=== PATIENT | male | born 1970 | race Caucasian/White ===

== ENCOUNTER 2021-08-04 09:26 | Outpatient (REF) | payer OTHER, SELFPAY ==
[2021-08-04 10:46] LABS: Hematocrit 43.5 % (42.0-52.0); Hemoglobin 14.7 g/dl (14.0-18.0); Mean Corpuscular HGB Conc 33.8 g/dl (31.0-36.0); Mean Corpuscular Hemoglobin 29.3 pg (27.0-33.0); Mean Corpuscular Volume 86.7 fL (80.0-98.0); Mean Platelet Volume 10.3 fL (9.4-12.4); Platelet Count 370 X10*3/uL (160-400); Red Blood Count 5.02 X10*6/uL (4.60-5.80); Red Cell Distribution Width 12.4 % (11.0-16.0); White Blood Count 8.4 X10*3/uL (4.8-10.8)
[2021-08-04 10:52] LABS: Estimated Average Glucose 103 mg/dL; Hemoglobin A1c % 5.2 %
[2021-08-04 11:16] LABS: Alanine Aminotransferase 30 U/L (0-40); Albumin Level 4.4 g/dL (3.5-5.0); Alkaline Phosphatase 70 U/L (39-117); Anion Gap 14 (12-20); Aspartate Amino Transferase 27 U/L (5-37); Bilirubin Total 1.2 mg/dL (0.0-1.0); Blood Urea Nitrogen 15 mg/dL (9-16); Calcium 9.7 mg/dL (8.4-10.2); Carbon Dioxide 26 mmol/L (22-29); Chloride 105 mmol/L (96-108); Cholesterol 231 mg/dL; Estimated Glomerular Filt Rate > 60; Glucose Fasting 92 mg/dL (60-99); HDL Cholesterol 57 mg/dL; LDL Cholesterol Calculated 158 mg/dl; Potassium 4.7 mmol/L (3.3-5.1); Sodium 140 mmol/L (135-145); Total Protein 7.2 g/dL (6.5-8.0); Triglycerides 82 mg/dL
[2021-08-04 11:39] LABS: Prostate Specific Antigen Scr 4.12 ng/mL (<0.05-4.0); TSH reflex Free T4 0.69 uIU/mL (0.32-4.0)
== END 2021-08-04 09:27 | disposition home or self-care (01) ==
LOC: HO.LAB 09:26
PROVIDERS: PCP Physician Assistant; Visit Provider Physician Assistant
DX: Z13.1 Encounter for screening for diabetes mellitus (principal); Z13.220 Encounter for screening for lipoid disorders; Z13.29 Encounter for screening for other suspected endocrine disorder; K52.9 Noninfective gastroenteritis and colitis, unspecified; Z12.5 Encounter for screening for malignant neoplasm of prostate
CPT/HCPCS: 36415; 80053; 80061; 83036; 84153; 84443; 85027

== ENCOUNTER 2022-01-01 10:21 | Day surgery (SDC) | payer OTHER, SELFPAY ==
--- NOTE | 2021-12-31 09:24 | HO.ANESPROP2 ---
Documented by User: Stefany Simon NP 12/31/21 09:27 HPI - Anesthesia Eval Consult details Narrative: 51yo M for Colonoscopy afib x 2 in his 20's, no anticoag PMFSH Active Problems Active Problems: All Active Problems (Updated 12/31/21 @ 07:45 by Alice Mathis RN) Epigastric pain (Acute) Screening for diabetes mellitus (DM) (Acute) Screening for hypercholesterolemia (Acute) Screening for hypothyroidism (Acute) Laceration of right lower leg (Acute) Leg wound, right (Acute) Encounter for removal of sutures (Acute) Elevated PSA (Acute) Borderline high cholesterol (Acute) Annual physical exam (Acute) IBD (inflammatory bowel disease) (Acute) Anxiety and depression (Acute) Past Medical History Medical History (Updated 12/31/21 @ 07:45 by Alice Mathis RN) Anxiety and depression Atrial fibrillation IBD (inflammatory bowel disease) Family History Family History Mother No problems noted. Father No problems noted. Surgical History Surgical History No significant past surgical history Social History Social History Housing: House Alcohol intake: never Patient Tobacco Use Status: Former Tobacco user Quit Date: 1998 e-Cigarette/Vaping Use: Never Used Second Hand Smoke Exposure: No Use of substances other than those prescribed or required for medical reasons: No Are you DNR?: No Advance Directives: No Advance Directives Information Provided: Yes service: Yes Current occupational status: employed Current occupation: [employer] Chief Cognitive needs: No Hearing needs: No Vision needs: Yes (glasses) Meds Allergies Allergy/AdvReac Type Severity Reaction Status Date / Time No Known Allergies Allergy Verified 12/25/21 13:37 Home Medications Medication Instructions Recorded Confirmed Last Taken Type mesalamine 4 gram/60 mL enema 4 g HI BEDTIME PRN as directed 08/19/20 12/25/21 Unknown History bupropion HCl 300 mg 24 hr tablet, 300 mg PO QAM 09/07/21 12/25/21 01/01/22 History extended release (Wellbutrin XL) ibuprofen 600 mg tablet 600 mg PO Q8H PRN Pain 09/07/21 12/25/21 Unknown History Exam Exam Date and Time: December 31, [id number] Pertinent Lab Results Pertinent Lab Results: Laboratory Tests 08/04/21 08/04/21 09:41 09:41 WBC 8.4 Hgb 14.7 Hct 43.5 Plt Count 370 Sodium 140 Potassium 4.7 Chloride 105 Carbon Dioxide 26 BUN 15 Creatinine 0.99 Assessment and Plan Assessment Anesthesia Assessment: Chart Reviewed Documented by User: Guerda Ambriz MD 01/01/22 11:17 [facility] Past Medical History Medical History (Updated 12/31/21 @ 07:45 by Alice Mathis RN) Anxiety and depression Atrial fibrillation IBD (inflammatory bowel disease) Family History Family History Mother No problems noted. Father No problems noted. Family history of problems with anesthesia: No Surgical History Surgical History No significant past surgical history History of Problems with Anesthesia: No Social History Social History Housing: House Alcohol intake: never Patient Tobacco Use Status: Former Tobacco user Quit Date: 1998 e-Cigarette/Vaping Use: Never Used Second Hand Smoke Exposure: No Use of substances other than those prescribed or required for medical reasons: No Are you DNR?: No Advance Directives: No Advance Directives Information Provided: Yes service: Yes Current occupational status: employed Current occupation: [employer] Chief Cognitive needs: No Hearing needs: No Vision needs: Yes (glasses) Meds Allergies Allergy/AdvReac Type Severity Reaction Status Date / Time No Known Allergies Allergy Verified 12/25/21 13:37 Home Medications Medication Instructions Recorded Confirmed Last Taken Type mesalamine 4 gram/60 mL enema 4 g HI BEDTIME PRN as directed 08/19/20 12/25/21 Unknown History bupropion HCl 300 mg 24 hr tablet, 300 mg PO QAM 09/07/21 12/25/21 01/01/22 History extended release (Wellbutrin XL) ibuprofen 600 mg tablet 600 mg PO Q8H PRN Pain 09/07/21 12/25/21 Unknown History Exam Height,Weight and Vital Signs: Height 5 ft 5 in Weight 74.843 kg Vital Signs Temp Pulse Resp BP Pulse Ox O2 Del Method 01/01/22 10:35 97.6 F 66 16 122/74 99 Room Air Airway Mallampati Class: II TM Dist: >3cm Neck ROM: Full Loose/Missing/Broken Teeth: No Heart: RRR Lungs: CTAB Assessment and Plan Assessment Anesthesia Assessment: Anesthesia Plan Discussed Final Anesthetic Review Family History of Problems with Anesthesia: No History of Problems with Anesthesia: No NPO: Yes ASA Class: II Final Preanesthetic Review: No Changes in Pt Med Stat, Meds/Allgs Chart Reviewed, Consent Obtained/Reviewed and Anes Risks/Benef Reviewed Patient Risk: Low Procedure Risk: Low Assessment/Block/Sedation in SS: Assess/Block/Sedation-SS Anesthetic Plan Anesthetic Plan: MAC: Disposition: Standard PACU
[2022-01-01 10:35] VITALS: BP 122/74; PULSE 66; RESP 16; TEMP 36.4; O2SAT 99; BMI 27.4
[2022-01-01] MEDS: Lactated Ringers 1,000 ML 100 ML IVCONT (10:43)
--- NOTE | 2022-01-01 11:39 | MHC.SHP ---
Pre-Procedural Eval Section A Date of Service: 01/01/22 Section B Chief Complaint: colitis Details of Present Illness: see H&P no changes Relevant Family History (Specify if Yes): No Relevant Social History: None Present Medications: None Medical History: No relevant PMH History of Previous Operations: No relevant previous surgery Allergies: Allergies Allergy/AdvReac Type Severity Reaction Status Date / Time No Known Allergies Allergy Verified 12/25/21 13:37 Plan I have reviewed the history and physical and performed a pertinent physical examination on my patient. No changes have occurred unless specified.
[2022-01-01 12:16] VITALS: BP 100/65; PULSE 62; RESP 18; TEMP 36.3; O2SAT 98
--- NOTE | 2022-01-01 12:16 | PM.OP ---
Brief Operative Note Date of Service: 01/01/22 Pre-op diagnosis: ulcerative colitis Post-op diagnosis: same Procedure: colonoscopy Surgeon: Indio Taylor Anesthesia: MAC Was an Spiritual Counselor used for this Procedure?: No Estimated blood loss (mL): 5 Pathology: other Condition: stable Disposition: PACU
[2022-01-01 12:31] VITALS: BP 115/80; PULSE 55; RESP 17; TEMP 36.3; O2SAT 100
--- NOTE | 2022-01-02 00:40 | OP_ITS ---
SURGEON: Indio Taylor MD INDICATIONS: Colon cancer screening, ulcerative colitis surveillance. PREOPERATIVE DIAGNOSIS: POSTOPERATIVE DIAGNOSIS: PROCEDURE PERFORMED: Colonoscopy to the terminal ileum with biopsy on 01/01/22. ESTIMATED BLOOD LOSS: COMPLICATIONS: ANESTHESIA: ASSISTANTS: SPECIMENS: MEDICATIONS: Monitored anesthesia care. DESCRIPTION OF PROCEDURE: A History and Physical performed. The risks and benefits of the procedure were explained to the patient. Informed consent was obtained. The patient was placed in the left lateral decubitus position. A digital rectal exam was performed and was found to be normal. The Olympus pediatric video colonoscope was introduced into the rectum and advanced to the cecum without difficulty. The cecum was identified by transillumination, palpation, and identification of ileocecal valve. Examination was performed. The scope was removed. He tolerated the procedure well and was taken to recovery in stable condition. FINDINGS: The terminal ileum was not examined. The visualized colonic mucosa was normal except in the rectum where the last 10-15 cm of colon showed changes consistent with mild colitis. There was loss of vascular pattern and superficial ulceration. No mass lesions were seen. Retroflexed examination was otherwise normal. Biopsies were obtained beginning in the cecum and extending to the rectum approximately every 10 cm in all 4 quadrants. No raised lesions or ulcerated areas were seen in the colon except in the rectosigmoid as above. IMPRESSION: Ulcerative colitis. RECOMMENDATION: Follow up the biopsy results. MD JAILYN Horn/JOSELO / [id number] MTDD
== END 2022-01-01 12:45 | disposition home or self-care (01) ==
PROVIDERS: PCP Physician Assistant; Visit Provider Internal Medicine Gastroenterology
PROC: 0DJD8ZZ Inspection of Lower Intestinal Tract, Via Natural or Artificial Opening Endoscopic (ICD-10-PCS; CPT 45378; principal; 2022-01-01 11:30)
DX: Z12.11 Encounter for screening for malignant neoplasm of colon (principal); K51.90 Ulcerative colitis, unspecified, without complications; E78.00 Pure hypercholesterolemia, unspecified; F41.8 Other specified anxiety disorders; Z79.899 Other long term (current) drug therapy; Z87.891 Personal history of nicotine dependence
CPT/HCPCS: 45380; 88305; J2405

== ENCOUNTER 2022-02-24 11:45 | Outpatient (REF) | payer OTHER, SELFPAY ==
--- NOTE | ~2022-02-24 | XR_ITS ---
EXAMINATION: XR CHEST CLINICAL INFORMATION: Shortness of breath COMPARISON: None TECHNIQUE: 2 views of the chest were obtained. FINDINGS: No significant abnormality is noted involving the heart, lungs, mediastinum, bony thorax or soft tissues. XR/XR chest 2V IMPRESSION: Unremarkable chest examination.
[2022-02-24 13:11] LABS: Hematocrit 44.5 % (42.0-52.0); Hemoglobin 15.1 g/dl (14.0-18.0); Mean Corpuscular HGB Conc 33.9 g/dl (31.0-36.0); Mean Corpuscular Hemoglobin 29.7 pg (27.0-33.0); Mean Corpuscular Volume 87.6 fL (80.0-98.0); Mean Platelet Volume 10.7 fL (9.4-12.4); Platelet Count 298 X10*3/uL (160-400); Red Blood Count 5.08 X10*6/uL (4.60-5.80); Red Cell Distribution Width 12.5 % (11.0-16.0); White Blood Count 9.3 X10*3/uL (4.8-10.8)
[2022-02-24 13:42] LABS: Alanine Aminotransferase 30 U/L (0-40); Albumin Level 4.9 g/dL (3.5-5.0); Alkaline Phosphatase 73 U/L (39-117); Anion Gap 19 (12-20); Aspartate Amino Transferase 24 U/L (5-37); Bilirubin Total 0.8 mg/dL (0.0-1.0); Blood Urea Nitrogen 16 mg/dL (9-16); Calcium 10.1 mg/dL (8.4-10.2); Carbon Dioxide 27 mmol/L (22-29); Chloride 103 mmol/L (96-108); Cholesterol 243 mg/dL; Estimated Glomerular Filt Rate > 60; Glucose Fasting 90 mg/dL (60-99); HDL Cholesterol 64 mg/dL; LDL Cholesterol Calculated 160 mg/dl; Potassium 5.1 mmol/L (3.3-5.1); Sodium 144 mmol/L (135-145); Total Protein 7.6 g/dL (6.5-8.0); Triglycerides 95 mg/dL
[2022-02-24 13:52] LABS: Erythrocyte Sedimentation Rate 5 MM/HR (0-15)
[2022-02-24 14:04] LABS: Prostate Specific Antigen Scr 3.26 ng/mL (<0.05-4.0)
== END 2022-02-24 11:46 | disposition home or self-care (01) ==
LOC: HO.LAB 11:45
PROVIDERS: PCP Physician Assistant; Visit Provider Physician Assistant
DX: Z12.5 Encounter for screening for malignant neoplasm of prostate (principal); R06.02 Shortness of breath; K52.9 Noninfective gastroenteritis and colitis, unspecified; R97.20 Elevated prostate specific antigen [PSA]; E78.9 Disorder of lipoprotein metabolism, unspecified
CPT/HCPCS: 36415; 71046; 80053; 80061; 84153; 85027; 85652

== ENCOUNTER → 2022-03-12 11:27 | Outpatient (REF) | payer OTHER, SELFPAY ==
--- NOTE | 2022-03-12 11:30 | HM_ITS ---
Conclusion: 1. Patient was monitored for total period of 4 days and 3 hours 2. Baseline was normal sinus rhythm with average heart of 68 beats per minute 3. Very rare ectopy noted 4. No significant pauses or bradycardia noted 5. No patient reported symptoms MTDD
== END ==
LOC: HO.CARD 11:27
PROVIDERS: PCP Physician Assistant; Visit Provider Physician Assistant
DX: R00.2 Palpitations (principal)
CPT/HCPCS: 93242

== ENCOUNTER 2022-10-27 02:24 | Emergency (ER) | payer OTHER, SELFPAY ==
[2022-10-27 02:28] VITALS: BP 136/83; PULSE 63; RESP 19; TEMP 36.4; O2SAT 100; BMI 27.5
[2022-10-27 02:47] VITALS: BP 136/83; PULSE 63; RESP 19; TEMP 36.4; O2SAT 100
--- NOTE | 2022-10-27 02:52 | PC.NURSE ---
pt c/o L shoulder pain states he was teaching daughter how to play on monkey bars 10/26/22 1800, when he felt like he pulled or dislocated his shoulder, denies feeling or hearing popping sensation states being unable to sleep d/t the pain intensity increased pain when movement involved aox4 no apparent distress, resting quietly
--- NOTE | 2022-10-27 03:03 | ED.EXTPRO ---
HPI - Extremity Problem General Chief complaint: Extremity Injury, Upper Stated complaint: Shoulder pain Time Seen by Provider: 10/27/22 02:54 Source: patient Mode of arrival: ambulatory Limitations: no limitations History of Present Illness HPI Narrative: Patient comes emergency room complaining of left-sided shoulder pain. Patient states that he was playing with his daughter he using her how to swing him the monkey bars. Patient states that he immediately felt pain, denting much of it. However, throughout the night the pain became much worse. Patient denies falling, denies any other injuries. Related Data Previous Rx's Medication Instructions Recorded bupropion HCl 300 mg 24 hr tablet, 300 mg PO QAM 90 days #90 tabs 03/31/22 extended release (Wellbutrin XL) Allergies Allergy/AdvReac Type Severity Reaction Status Date / Time No Known Allergies Allergy Verified 07/19/22 13:54 Review of Systems Review of Systems: Constitutional : No Weight loss, No Fever, No Chills, No Night Sweats, No Fatigue, No Malaise ENT/Mouth : No Hearing loss, No Ear Pain, No Nasal Congestion, No Sinus Pain, No Hoarseness, No sore throat, No Rhinorrhea, No Swallowing Difficulty Eyes: No Eye Pain, No Swelling, No Redness, No Foreign Body, No Discharge, No Vision Changes Cardiovascular : No Chest Pain, No SOB, No Dyspnea on Exertion, No Orthopnea, No Edema, No Palpitations Respiratory : No Cough, No Sputum, No Wheezing, No Smoke Exposure, No Dyspnea Gastrointestinal : No Nausea, No Vomiting, No Diarrhea, No Constipation, No abdominal Pain, No Hematochezia, No Melena Genitourinary : no irregular bleeding, No Dysuria, No Urinary Frequency, No Hematuria, No Urinary Incontinence, No Urgency, No Flank Pain, No Urinary Flow Changes, No Hesitancy Musculoskeletal : Complaining of left shoulder pain No Myalgias, No Joint Swelling Skin : No Skin Lesions, No rash Neuro : No Weakness, No Numbness, No Paresthesias, No Loss of Consciousness, No Dizziness, No Headache Psych : No Anxiety/Panic, No Depression, No SI/HI/AH/VH, No Social Issues, Heme/Lymph: No Bruising, No Bleeding,No Lymphadenopathy Endocrine : No Polyuria, No Polydipsia, No Temperature Intolerance [facility] Past Medical History Medical History Anxiety and depression Atrial fibrillation IBD (inflammatory bowel disease) Surgical History No significant past surgical history Family History Family History Mother No problems noted. Father No problems noted. 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 Oriented X3. No acute distress. Eyes: Pupils equal, round and reactive to light. ENT: Pharynx normal. Neck: Normal inspection. Neck supple. No lymph nodes noted. No crepitus CVS: Normal heart rate and rhythm. Pulses normal. Normal S1 and S2 Respiratory: No respiratory distress. Breath sounds normal. No Wheezing. No rales Abdomen: Soft and nontender. No rigidity. No distention. Skin: Skin warm and dry. Normal skin color. Normal skin turgor. Extremities: No lower extremity edema. No Lacerations. No Rash, pain to palpation over the anterior side of the shoulder. No clavicular pain. Patient is able to abduct the arm all the way to 180 degrees. However, patient has to push significantly through pain to do so Neuro: Oriented X 3. No motor deficit. No sensory deficit. Moving all extremities. No slurred speech. CN 2 through 12 grossly intact Psych: calm, cooperative, normal affect Medical Decision Making Medical Decision Making MDM Narrative: My interpretation of x-ray of the shoulder: Normal alignment, no dislocation, no fracture -I offered p.o. medications including narcotics and IM medications to the patient, patient become -patient declined shoulder sling Differential Diagnosis Differential Diagnoses: The differential diagnosis associated with the presentation includes (Shoulder dislocation, humerus fracture, bursitis, clavicular fracture, labrum tear, rotator cuff tear versus rupture) Radiology Impression Discussion of test interpretation with radiology: I have reviewed the radiologist's reading. Radiologist Impression: FINDINGS: No acute fractures. Glenohumeral and acromioclavicular alignment is anatomic. Small marginal osteophytes along the acromioclavicular and glenohumeral joints. Soft tissues unremarkable. XR/XR shoulder LT min 2V IMPRESSION: *? No acute fractures or dislocations. *? Mild degenerative changes as described Discharge Plan Discharge Clinical Impression: Acute pain of left shoulder Patient Disposition: Home, Self-Care Instructions: Shoulder Pain (ED) Additional Instructions: Please follow-up with your primary care physician tomorrow. If you have any worsening or new symptoms, please return to the emergency room or call 911 Prescriptions: No Action bupropion HCl [Wellbutrin XL] 300 mg tablet extended release 24 hr 300 mg PO QAM 90 Days Qty: 90 2RF Referrals: Federico Ruiz PA-C [Physician Propeller Driven Airplane Mechanic] - Stand Alone Forms: Work/School Release
--- NOTE | 2022-10-27 04:00 | PC.NURSE ---
Discharge instructions given and explained to pt No apparent distress gait steady and independent aox4 all of pt's questions answered
== END 2022-10-27 04:04 | disposition home or self-care (01) ==
PROVIDERS: Emergency Provider Emergency Medicine; PCP Physician Assistant
DX: M25.512 Pain in left shoulder (principal)
CPT/HCPCS: 73030; 99283; 99284

== ENCOUNTER 2023-08-11 09:59 | Outpatient (AMB) | payer OTHER, SELFPAY ==
[2023-08-11 09:59] VITALS: BP 100/74; PULSE 70; O2SAT 98; BMI 27.5
--- NOTE | 2023-08-11 09:59 | A.OFFPC_ITS ---
Vital Signs 08/11/23 09:59 Height 5 ft 5 in Weight 165 lb 6 oz BMI 27.5 BP 100/74 Blood Pressure Location Lt brachial Position Sitting Pulse 70 Pulse Source Pulse Oximeter Pulse Oximetry (%) 98 Oxygen Delivery Method Room Air Intake Visit Reasons: left lower abdominal pain Intake Note: The patient presents with ongoing left lower abdominal pain, which has been improving over the past few months. Jewelry Facer Required: No Accompanied by: Self / Same As Patient Allergies No Known Allergies Allergy (Verified 08/11/23 10:10) Medication List - Last Reconciled 08/11/23 by Leodan Gil PA-C bupropion HCl XL (Wellbutrin XL) 300 mg PO QAM 90 days Tobacco use date assessed: 08/11/23 HPI left lower abdominal pain HPI Details Patient is a 53-year-old male here today for a problem visit? Patient has a past medical history significant for ulcerative colitis, depression, anxiety. He reports over the last 2 months having left lower quadrant inguinal pain. He reports injuring it while playing hockey. He reports gradually the pain is getting better. The pain only really bothers him when he is being physically active. [facility] Medical History Atrial fibrillation Anxiety and depression IBD (inflammatory bowel disease) Surgical History No significant past surgical history Family History Mother No problems noted. Father No problems noted. 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 1. Little interest or pleasure in doing things: not at all 2. Feeling down, depressed, or hopeless: not at all 3. Trouble falling or staying asleep, or sleeping too much: not at all 4. Feeling tired or having little energy: not at all 5. Poor appetite or overeating: not at all 6. Feeling bad about yourself - or that you are a failure or have let yourself or your family down: not at all 7. Trouble concentrating on things, such as reading the newspaper or watching television: not at all 8. Moving or speaking so slowly that other people could have noticed. Or the opposite - being so fidgety or restless that you have been moving around a lot more than usual: not at all 9. Thoughts that you would be better off or of hurting yourself in some way: not at all Total score: 0 Depression Screening Interpretation: Negative Depression Screening Done: Yes 85686 - PHQ-9 Billing: Yes Source: Developed by Drs. Mike Garcia, Babita Faulkner, Ian Carney and colleagues, with an educational adrian from [employer]. Thrive Questionnaire Date Thrive assessed: 08/11/23 I am a: Patient What is your living situation today?: I have a steady place to live Within the past 12 months, did the food you bought not last and you didn't have the money to get more?: Never true Within the past 12 months, did you worry whether your food would run out before you got money to buy more?: Never true Do you have trouble paying for medicines?: No Do you have trouble getting transportation to medical appointments?: No Do you have trouble paying your heating and electricity bill?: No Do you have trouble taking care of your child, family member or friend?: No Do you have trouble with day-to-day activities such as bathing, preparing meals, shopping, managing finances, etc.?: No Are you currently unemployed and looking for a job?: No Are you interested in more education?: No Please select the resources that you would like help with: None Currently or been in a relationship where the following occur: no concerns reported THRIVE Score: 0 AUDIT C Alcohol Use Questionnaire (AUDIT-C) 1. How often do you have a drink containing alcohol?: Never 3. How often do you have six or more drinks on one occasion?: Never Total Score: 0 ADDI-7 AMB Questionnaire ADDI-7 Date ADDI - 7 assessed: 08/11/23 Feeling nervous, anxious, or on edge: 0 = Not at all Not being able to stop or control worryin = Not at all Worrying too much about different things: 0 = Not at all Trouble relaxin = Not at all Being so restless that it is hard to sit still: 0 = Not at all Becoming easily annoyed or irritable: 0 = Not at all Feeling afraid as if something awful might happen: 0 = Not at all Total ADDI-7 score (0-4 normal; 5-9 mild; 10-14 moderate; 15-21 severe): 0 Source: Developed by Drs. Mike Garcia, Babita Faulkner, Ian Carney and colleagues, with an educational adrian from [employer]. ADDI-7 Assessment Billing ADDI-7 Assessment Tool: ADDI-7 Assessment 03179 Review of Systems Const Denies headache(s) Eyes Denies loss of vision ENT Denies vertigo, Denies dizziness, Denies headache(s) and Denies sore throat Card Denies chest pain, Denies leg edema and Denies lightheadedness Resp Denies cough, Denies hemoptysis and Denies wheezing GI Denies abdominal pain, Denies melena, Denies constipation, Denies diarrhea and Denies vomiting Denies dysuria, Denies urinary frequency and Denies urinary urgency Musc Denies arthralgias, Denies joint swelling, Denies numbness and Denies tingling Neuro Denies Abnormal speech present, Denies behavioral changes, Denies vertigo, Denies dizziness, Denies headache(s), Denies loss of vision, Denies memory loss, Denies numbness and Denies tingling Psych Denies anxiety, Denies behavioral changes, Denies depression, Denies memory loss and Denies panic attacks Saulo/Lymph Denies easy bleeding and Denies easy bruising Aller/Immun Denies wheezing Physical exam (Primary Care) Vital Signs: Last Vital Signs Pulse 70 08/11/23 09:59 BP 100/74 08/11/23 09:59 Pulse Ox 98 08/11/23 09:59 Oxygen Delivery Method Room Air 08/11/23 09:59 BMI result Body Mass Index 27.5 Tobacco/Smoking Status: Tobacco use Status Tobacco use date assessed 08/11/23 08/11/23 10:08 Patient Tobacco Use Status Former Tobacco user 08/11/23 10:00 e-Cigarette/Vaping Use Never Used 08/11/23 10:00 PHQ-9: PHQ-9 Score PHQ-9: Total score 0 08/11/23 10:10 Depression Screening Interpretation: Negative Thrive Assessment: Date of Thrive Assessment Date Thrive assessed 08/11/23 08/11/23 10:10 Currently or been in a relationship where the following occur: no concerns reported Const General: healthy appearing, no acute distress, alert and awake Nutritional Appearance: well nourished Orientation/consciousness: oriented to person, oriented to place and oriented to time HENMT Ears: TM's normal bilaterally General nose exam: Normal nasal mucous membranes and turbinates present Eyes Conjunctivae: conjunctivae normal Sclerae: sclerae normal Pupils: Equal, round and reactive pupils present Neck Neck: Yes no lymphadenopathy and Yes no JVD Thyroid: Thyroid normal Carotids: no bruits Resp Effort & Inspection: normal respiratory effort and not tachypneic Auscultation: no crackles, no rales, no rhonchi and no wheezes Cardio Rate: regular rate Rhythm: regular rhythm Heart sounds: no murmurs and normal S1 and S2 GI Palpation (GI): Soft to palpation, nontender, no hepatomegaly and no splenomegaly Auscultation: normal bowel sounds Skin General skin exam: no rashes or lesions noted and dry skin Neuro General: oriented to person, oriented to place and oriented to time Cranial nerves: Yes Equal, round and reactive pupils present Speech: No Abnormal speech present Gait exam (Neuro): Normal gait present Motor exam (neuro): no tremor noted Extrem Right upper extremity: full ROM Left upper extremity: full ROM Right lower extremity: full ROM; no edema Left lower extremity: full ROM; no edema Psych Mental Status: mental status grossly normal Speech and movement: Normal speech and movement present Affect: normal affect Attitude: cooperative Thought process: Normal thought process present Assessment and Plan Assessment & Plan (1) Left inguinal pain: Code(s): R10.32 - Left lower quadrant pain Plan: Patient's signs symptoms most consistent with a left inguinal strain or hip extensor issue. He would likely benefit from formal physical therapy though is declining at this time. Will rest and do light stretches on his own as his left inguinal discomfort has been gradually going away. Orders: Orders Complete Blood Count no Diff Today K52.9 - Noninfective gastroenteritis and colitis, unspecified Lipid Panel Today E78.9 - Disorder of lipoprotein metabolism, unspecified XR hip LT min 2V Today R10.32 - Left lower quadrant pain Prostate Specific Antigen Scr Today R97.20 - Elevated prostate specific antigen [PSA], Z12.5 - Encounter for screening for malignant neoplasm of prostate Comprehensive [place]. Panel Fast Today Z13.1 - Encounter for screening for diabetes mellitus Medications: Refilled bupropion HCl XL (Wellbutrin XL) 300 mg PO QAM 90 tabs 2RF 90 days F32.9 - Major depressive disorder, single episode, unspecified, F41.9 - Anxiety disorder, unspecified Coding Level of Care Code Est Pt Level 3 (53110) Diagnoses Left inguinal pain R10.32 Additional Codes ADDI-7 Assessment Billing - ADDI-7 Assessment Tool: ADDI-7 Assessment 40414 ([id number])
== END 2023-08-11 10:33 | disposition home or self-care (01) ==
PROVIDERS: PCP Physician Assistant; Visit Provider Physician Assistant
DX: R10.32 Left lower quadrant pain (principal)
CPT/HCPCS: 99213

== ENCOUNTER 2023-10-04 08:33 | Outpatient (REF) | payer OTHER, SELFPAY ==
--- NOTE | ~2023-10-04 | XR_ITS ---
EXAMINATION: XR ABDOMEN XR HIP, LEFT CLINICAL INFORMATION: Left lower quadrant pain. TECHNIQUE: AP and lateral left hip and 2 supine views of the abdomen. FINDINGS: Nonobstructive bowel gas pattern. Mild amount of stool in the colon. No abnormally dilated loops of bowel to suggest obstruction. Small pelvic calcifications are likely vascular. 7 mm calcification in the left upper quadrant appears to be located lateral to the kidney and of uncertain etiology. Left Hip: Alignment maintained. Mild joint space narrowing with lateral acetabular hypertrophic change. XR/XR abdomen min 2V IMPRESSION: 1. A 7 mm calcification in the left upper quadrant appears to be located lateral to the left kidney and concern etiology. 2. Nonobstructive bowel gas pattern. Moderate amount of stool in the colon. 3. Mild degenerative changes in the left hip.
--- NOTE | ~2023-10-04 | XR_ITS ---
EXAMINATION: XR ABDOMEN XR HIP, LEFT CLINICAL INFORMATION: Left lower quadrant pain. TECHNIQUE: AP and lateral left hip and 2 supine views of the abdomen. FINDINGS: Nonobstructive bowel gas pattern. Mild amount of stool in the colon. No abnormally dilated loops of bowel to suggest obstruction. Small pelvic calcifications are likely vascular. 7 mm calcification in the left upper quadrant appears to be located lateral to the kidney and of uncertain etiology. Left Hip: Alignment maintained. Mild joint space narrowing with lateral acetabular hypertrophic change. XR/XR hip LT min 2V IMPRESSION: 1. A 7 mm calcification in the left upper quadrant appears to be located lateral to the left kidney and concern etiology. 2. Nonobstructive bowel gas pattern. Moderate amount of stool in the colon. 3. Mild degenerative changes in the left hip.
[2023-10-04 09:28] LABS: Hematocrit 45.8 % (42.0-52.0); Hemoglobin 15.7 g/dl (14.0-18.0); Mean Corpuscular HGB Conc 34.3 g/dl (31.0-36.0); Mean Corpuscular Hemoglobin 30.3 pg (27.0-33.0); Mean Corpuscular Volume 88.2 fL (80.0-98.0); Mean Platelet Volume 10.4 fL (9.4-12.4); Platelet Count 305 X10*3/uL (160-400); Red Blood Count 5.19 X10*6/uL (4.60-5.80); Red Cell Distribution Width 12.6 % (11.0-16.0); White Blood Count 7.8 X10*3/uL (4.8-10.8)
[2023-10-04 09:59] LABS: Alanine Aminotransferase 24 U/L (0-40); Albumin Level 4.7 g/dL (3.5-5.0); Alkaline Phosphatase 68 U/L (39-117); Anion Gap 15 (12-20); Aspartate Amino Transferase 22 U/L (5-37); Blood Urea Nitrogen 16 mg/dL (9-16); Carbon Dioxide 27 mmol/L (22-29); Chloride 105 mmol/L (96-108); Cholesterol 229 mg/dL (<200); Estimated Glomerular Filt Rate > 60; Glucose Fasting 101 mg/dL (60-99); HDL Cholesterol 62 mg/dL (>40); LDL Cholesterol Calculated 141 mg/dL (<100); Potassium 5.1 mmol/L (3.3-5.1); Sodium 142 mmol/L (135-145); Total Protein 7.6 g/dL (6.5-8.0); Triglycerides 134 mg/dL (<150)
[2023-10-04 10:18] LABS: Prostate Specific Antigen Scr 4.21 ng/mL (<0.05-4.0)
== END 2023-10-04 08:34 | disposition home or self-care (01) ==
LOC: HO.XRAY 08:33
PROVIDERS: PCP Physician Assistant; Visit Provider Physician Assistant
DX: R10.32 Left lower quadrant pain (principal); Z13.1 Encounter for screening for diabetes mellitus; K52.9 Noninfective gastroenteritis and colitis, unspecified; E78.9 Disorder of lipoprotein metabolism, unspecified; Z12.5 Encounter for screening for malignant neoplasm of prostate; R97.20 Elevated prostate specific antigen [PSA]
CPT/HCPCS: 36415; 73502; 74019; 80053; 80061; 84153; 85027

== ENCOUNTER 2023-10-05 08:33 | Outpatient (AMB) | payer OTHER, SELFPAY ==
[2023-10-05 08:35] VITALS: BP 108/76; PULSE 78; O2SAT 98; BMI 27.2
--- NOTE | 2023-10-05 08:35 | MHC.PC.OV ---
Vital Signs 10/05/23 08:35 Height 5 ft 5 in Weight 163 lb 4 oz BMI 27.2 BP 108/76 Blood Pressure Location Lt brachial Position Sitting Pulse 78 Pulse Source Pulse Oximeter Pulse Oximetry (%) 98 Oxygen Delivery Method Room Air Intake Visit Reasons: Overdue Annual PE Prosthodontist Required: No Accompanied by: Self / Same As Patient Allergies No Known Allergies Allergy (Verified 10/05/23 08:52) Medication List - Last Reconciled 10/05/23 by Leodan Gil PA-C bupropion HCl XL (Wellbutrin XL) 300 mg PO QAM 90 days Tobacco use date assessed: 08/11/23 Dental Screening Dental Screen Date: 10/05/23 Did you have a dental visit in the last 12 months?: Yes Did you have a dental problem in the last 6 months where you did not have access to dental care?: No Was dental information given to patient?: Patient has dentist HPI Overdue Annual PE HPI Details Patient is a 53-year-old male here today for a routine annual physical.? Patient has a past medical history significant for ulcerative colitis, depression, anxiety. Concern--> he does report a week ago having an acute sharp lower back pain resulting in gross hematuria. Feels that he may have passed a kidney stone. His gross hematuria has resolved. Also he continues to have some noticeable left inguinal discomfort over last several months that has been gradually getting better. Did get x-ray of his left hip and abdomen to which we are waiting on results. .. Depression/ anxiety: Patient continues on Wellbutrin 300 mg daily with good effect on his mental health. He would like to continue this medication for now. .. Ulcerative colitis :? Followed by gastroenterology. Gets colonoscopies q 3-5 years.? Has not noted any weight loss and bowel movements have been normal. .. Hyperlipidemia: most recent total cholesterol elevated which has been a consistent finding for him. He will continue to work on lifestyle modifications to help reduce his total cholesterol. Trailed statin therapy in the past though had adverse side effects. Vaccine:? Up-to-date with tetanus, UTD COVID vaccine, considering shingles vaccine Colorectal cancer screening: Most recent colonoscopy done in 2021, followed by GI for his ulcerative colitis as well. Laboratory Tests 02/24/22 10/04/23 12:04 08:48 RBC 5.19 Creatinine 1.05 Fasting Glucose 101 H Cholesterol 243 229 H LDL Cholesterol, C alc 160 141 H PSA Screen 3.26 4.21 H PFSH Medical History Atrial fibrillation Anxiety and depression IBD (inflammatory bowel disease) Surgical History No significant past surgical history Family History Mother No problems noted. Father No problems noted. 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 Mike Garcia, Babita Faulkner, Ian Carney and colleagues, with an educational adrian from [email or web address]. Review of Systems Const Denies body aches, Denies chills, Denies excessive sweating, Denies fatigue, Denies fever(s) and Denies headache(s) Eyes Denies blurry vision ENT Denies dysphagia, Denies vertigo, Denies dizziness, Denies headache(s), Denies hearing loss and Denies tinnitus Card Denies chest pain, Denies chest pain with activity, Denies syncope, Denies irregular heart rhythm and Denies dyspnea Resp Denies chest congestion, Denies cough, Denies hemoptysis, Denies dyspnea and Denies wheezing GI Denies abdominal pain, Denies melena, Denies hematochezia, Denies coffee ground emesis, Denies dysphagia, Denies diarrhea, Denies nausea and Denies vomiting Denies difficulty urinating, Denies dysuria, Denies urinary frequency, Denies urinary hesitancy and Denies urinary urgency Musc Denies arthralgias, Denies limited range of motion, Denies muscle cramps and Denies muscle weakness Skin/Breast Denies rash and Denies skin ulcer Neuro Denies Abnormal speech present, Denies confusion, Denies vertigo, Denies dizziness, Denies syncope, Denies headache(s), Denies memory loss and Denies seizure-like activity Psych Denies anxiety, Denies confusion, Denies depression, Denies memory loss, Denies panic attacks and Denies paranoia Endo Denies excessive sweating, Denies fatigue, Denies flushing, Denies polydipsia and Denies polyuria Aller/Immun Denies wheezing Physical exam (Primary Care) Vital Signs: Last Vital Signs Pulse 78 10/05/23 08:35 BP 108/76 10/05/23 08:35 Pulse Ox 98 10/05/23 08:35 Oxygen Delivery Method Room Air 10/05/23 08:35 BMI result Body Mass Index 27.2 Tobacco/Smoking Status: Tobacco use Status Tobacco use date assessed 08/11/23 10/05/23 08:37 Patient Tobacco Use Status Former Tobacco user 10/05/23 08:37 e-Cigarette/Vaping Use Never Used 10/05/23 08:37 Thrive Assessment: Date of Thrive Assessment Date Thrive assessed 08/11/23 10/05/23 08:37 Const General: cooperative, comfortable, no acute distress, alert and awake; No confusion Orientation/consciousness: oriented to person, oriented to place, patient oriented x3 and No confusion HENMT Head: Yes normocephalic Ears: external ears normal and TM's normal bilaterally Face and sinus: No sinus tenderness Mouth: Normal oral and palatal mucosa present and tongue normal Teeth and gingiva: dentition normal and gingiva normal Throat: Yes posterior oropharynx normal, Yes tonsils normal and Yes uvula midline Eyes Conjunctivae: conjunctivae normal Sclerae: sclerae normal Pupils: Equal, round and reactive pupils present EOM: EOMs intact bilaterally Direct Ophthalmoscopy: No no photophobia Neck Neck: Yes no lymphadenopathy, No tender and Yes no JVD Thyroid: Thyroid normal Carotids: no bruits Chest Chest palpation & inspection: no tenderness Resp Effort & Inspection: normal respiratory effort, no audible wheezes, not labored and no stridor Auscultation: no crackles, no rales, no rhonchi and no wheezes Cardio Jugular venous distension: no JVD Rate: regular rate, not bradycardic and not tachycardic Rhythm: regular rhythm Bruits: no carotid bruits Peripheral pulses: Peripheral pulses 2+ throughout GI Inspection: Yes normal to inspection, No abdominal wall ecchymosis and No visible herniation Palpation (GI): Soft to palpation, nontender, no guarding, not rigid and No hepatosplenomegaly present Auscultation: normoactive bowel sounds General: Yes no CVA tenderness Back/Spine/Pelvis Back: no CVA tenderness and No back tenderness Cervical Spine: cervical ROM normal Thoracic/Lumbar Spine: thoracic and lumbar spine normal to inspection, straight leg raise negative bilaterally, No thoraco-lumbar ROM limited and No lumbar spinal tenderness Skin Lesions: no lesions Rashes: no rashes Wounds: no wounds Neuro General: oriented to person, oriented to place, patient oriented x3, CN's II-XI intact bilaterally and No confusion Cranial nerves: Yes Equal, round and reactive pupils present and Yes Normal accommodation reflex present Cognition (Neuro): normal cognition Speech: No Abnormal speech present Gait exam (Neuro): Normal gait present Motor exam (neuro): 5/5 motor strength present throughout Extrem Right upper extremity: full ROM; no cyanosis Left upper extremity: full ROM; no cyanosis Right lower extremity: no edema Left lower extremity: no edema Psych Appearance: grossly normal Mental Status: mental status grossly normal Affect: normal affect Attitude: cooperative Thought process: Normal thought process present Assessment and Plan Assessment & Plan (1) Annual physical exam: Code(s): Z00.00 - Encounter for general adult medical examination without abnormal findings (2) Borderline high cholesterol: Code(s): E78.9 - Disorder of lipoprotein metabolism, unspecified Plan: Patient continues to have borderline high total cholesterol. Has tried statin in the past though had adverse reaction. Will continue to work on lifestyle modifications on reducing high cholesterol foods in being physically active. (3) Elevated PSA: Code(s): R97.20 - Elevated prostate specific antigen [PSA] Plan: Patient's slightly elevated on most recent labs. Has had history of elevated PSAs. Does report some nocturia at times. Will continue to follow. Otherwise denies any urinary symptoms. (4) IBD (inflammatory bowel disease): Code(s): K52.9 - Noninfective gastroenteritis and colitis, unspecified Plan: Patient continues to follow up gastroenterology. Does use mesalamine on a very limited p.r.n. basis for colitis flares. Most recent colonoscopy normal. (5) ADDI (generalized anxiety disorder): Code(s): F41.1 - Generalized anxiety disorder Plan: Patient continues on Wellbutrin 300 mg daily with good effect on reducing his anxiety. (6) Left inguinal pain: Code(s): R10.32 - Left lower quadrant pain Plan: Patient's signs symptoms most consistent with a left inguinal strain or hip extensor issue. He reports the discomfort is gradually getting better though is taken unusual long time. He would likely benefit from formal physical therapy though is declining at this time. Will rest and do light stretches on his own as his left inguinal discomfort has been gradually going away. Orders: Orders Prostate Specific Antigen Scr 6 Months R97.20 - Elevated prostate specific antigen [PSA], Z12.5 - Encounter for screening for malignant neoplasm of prostate Lipid Panel 11 Months E78.9 - Disorder of lipoprotein metabolism, unspecified Complete Blood Count no Diff 11 Months E78.9 - Disorder of lipoprotein metabolism, unspecified Comprehensive [place]. Panel Fast 11 Months E78.9 - Disorder of lipoprotein metabolism, unspecified Medications: Refilled bupropion HCl XL (Wellbutrin XL) 300 mg PO QAM 90 tabs 2RF 90 days F32.9 - Major depressive disorder, single episode, unspecified, F41.9 - Anxiety disorder, unspecified Coding Level of Care Code Est Pt Prev Care 40-64y(17008) Diagnoses Annual physical exam Z00.00 Borderline high cholesterol E78.9 Elevated PSA R97.20 IBD (inflammatory bowel disease) K52.9 ADDI (generalized anxiety disorder) F41.1 Left inguinal pain R10.32
== END 2023-10-05 09:19 | disposition home or self-care (01) ==
PROVIDERS: PCP Physician Assistant; Visit Provider Physician Assistant
DX: Z00.00 Encounter for general adult medical examination without abnormal findings (principal); E78.9 Disorder of lipoprotein metabolism, unspecified; R97.20 Elevated prostate specific antigen [PSA]; K52.9 Noninfective gastroenteritis and colitis, unspecified; F41.1 Generalized anxiety disorder; R10.32 Left lower quadrant pain
CPT/HCPCS: 99396

== ENCOUNTER 2024-05-27 06:53 | Emergency (ER) | payer BC, SELFPAY ==
--- NOTE | ~2024-05-27 | XR_ITS ---
CLINICAL HISTORY: cough for week not getting better 2 view chest x-ray Comparison: CR/SR - XR CHEST 2V - 02/24/22 13:02 EDT Findings: The lungs are clear. Heart size is normal. No acute fracture. IMPRESSION: 1. No acute findings. This document has been electronically signed by: Cayden Thomas MD on 05/27/2024 07:32:42
[2024-05-27 07:07] VITALS: BP 112/63; PULSE 74; RESP 18; TEMP 37.5; O2SAT 99; BMI 26.5
[2024-05-27 08:08] LABS: Influenza A PCR NEGATIVE (Negative); Influenza B PCR NEGATIVE (Negative); Resp Syncy Virus RNA Qual PCR NEGATIVE (Negative); SARS COV2 PCR INHOUSE NEGATIVE (Negative)
--- NOTE | 2024-05-27 09:09 | ED.URI ---
HPI - URI/Sore Throat General Chief Complaint: Upper Respiratory Symptoms Stated Complaint: resp symptoms Time Seen by Provider: 05/27/24 09:07 Source: patient Mode of arrival: ambulatory Limitations: no limitations History of Present Illness ED Provider: arsenio witt pa-c HPI Narrative: 54-year-old male with pmhx significant for IBD, anxiety, depression, atrial fibrillation presents to the ED today for evaluation of cough productive of yellow/green sputum x1 week. Reports temp of 100?F at home yesterday. No OTC pain meds [employer]. Denies known sick contacts however does work for the [employer] department. Is unsure if he has been around anyone ill recently. Denies sore throat, chest pain, shortness of breath, nausea or vomiting, abdominal pain, diarrhea, constipation. Related Data Previous Rx's ?Medication ?Instructions ?Recorded bupropion HCl 300 mg 24 hr tablet, 300 mg PO QAM 90 days #90 tabs 10/05/23 extended release (Wellbutrin XL) azithromycin 250 mg tablet See Rx Instructions PO .COMPLEX #6 05/27/24 tabs guaifenesin 200 mg tablet 200 mg PO TID PRN cough #10 tabs 05/27/24 prednisone 20 mg tablet 40 mg (2 x 20 mg) PO DAILY 5 days 05/27/24 #10 tabs Allergies Allergy/AdvReac Type Severity Reaction Status Date / Time No Known Allergies Allergy Verified 05/27/24 07:10 Review of Systems Review of Systems: Constitutional: No fever, chills, fatigue, night sweats, weight changes ENT/Mouth: No ear pain, hearing loss, nasal congestion, sinus pain, rhinorrhea, +sore throat Eyes: No eye pain, swelling, redness, vision changes, discharge Cardio: No chest pain, palpitations, GARCIA, orthopnea, peripheral edema Pulm: No SOB, cough, sputum, wheezing, dyspnea, hemoptysis, +cough GI: No nausea, vomiting, hematemesis, abdominal pain, diarrhea, constipation, hematochezia, melena : No irregular bleeding, dysuria, frequency, urgency, hesitancy, hematuria, flank pain, urinary flow changes, urinary incontinence or retention MSK: No back pain, neck pain, joint pain, myalgias Skin: No lesions, rashes Neuro: No weakness, numbness, paresthesias, LOC, dizziness, +headache Psych: No anxiety/panic, depression, SI/HI, AH/VH All other systems reviewed and are negative. [facility] Past Medical History Attestation statement: The following information was validated with the patient. Source: old records reviewed and nursing notes reviewed Medical History Atrial fibrillation Anxiety and depression IBD (inflammatory bowel disease) Surgical History No significant past surgical history Family History Family History Mother No problems noted. Father No problems noted. 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 Skin: Warm, dry, intact. No rashes or lesions. Head: Normocephalic, atraumatic. EENT: Hearing is intact b/l. Conjunctiva clear. PERRLA. EOM intact. Moist mucous membranes.? Neck: Supple without LAD Cardiac: Chest wall symmetric. RRR Lungs: Normal respiratory effort without accessory muscle use. bronchospastic cough. CTA bilaterally. No rales, rhonchi, or wheezes.? Ext: Upper and lower extremities atraumatic, without tenderness, deformity, swelling or erythema Neuro: AOx3. Normal speech. Ambulating with steady gait. Psych: Appropriate mood and affect. Responds appropriately to questions. Course Course Course Narrative: Patient tested negative for COVID, flu, RSV. Chest x-ray does not demonstrate pneumonia. Given length of symptoms, will send azithromycin, guaifenesin and prednisone to pharmacy to treat bronchitis. Patient has remained stable throughout ED visit today. Discussed worrisome signs and symptoms and when to return to the ED. All questions answered at this time. Patient is agreeable with disposition and stable for discharge. Medical Decision Making Medical Decision Making MDM Narrative: 54-year-old male with pmhx significant for IBD, anxiety, depression, atrial fibrillation presents to the ED today for evaluation of cough productive of yellow/green sputum x1 week. vital signs stable. afebrile. he is nontoxic appearing and in NAD. No respiratory distress. No tripoding. Lungs CTA bilaterally without rales, rhonchi or wheezes. Bronchospastic cough. Posterior oropharynx without erythema or edema. No tonsillar exudates or peritonsillar masses. Uvula midline. Controlling secretions and speaking in complete sentences. Differential diagnosis includes viral syndrome, headache, migraine, pneumonia, bronchitis Unlikely [employer], retropharyngeal abscess, epiglottitis, peritonsillar abscess. Plan for viral swabs, chest x-ray. Differential Diagnosis Differential Diagnoses: The differential diagnosis associated with the presentation includes As above Admission/Observation Not indicated Lab Data [facility] [place] Lab Attestation statement: I reviewed the patient's lab results. As above Labs: Lab Results 05/27/24 Range/Units 07:14 Influenza Type A (PCR) NEGATIVE (Negative) Influenza Type B (PCR) NEGATIVE (Negative) RSV RNA Qual (PCR) NEGATIVE (Negative) SARS-CoV-2 RNA (RT-PCR) NEGATIVE (Negative) Independent Interpretation I performed an independent interpretation of an: Plain X-Ray Interpretation: Chest x-ray without focal consolidation or infiltrate Radiology Impression Discussion of test interpretation with radiology: I have reviewed the radiologist's reading. Radiologist Impression: Procedure(s): XR chest 2V Accession Number(s): [id number] cc: Leodan Gil PA-C; Generic ED Physician~ CLINICAL HISTORY: cough for week not getting better 2 view chest x-ray Comparison: CR/SR - XR CHEST 2V - 02/24/22 13:02 EDT Findings: The lungs are clear. Heart size is normal. No acute fracture. IMPRESSION: 1. No acute findings. This document has been electronically signed by: Cayden Thomas MD on 05/27/2024 07:32:42 External Record Review External record reviewed: Inpatient record Prescription Management I considered prescription management with: Antibiotic (Azithromycin) Social Determinants Patient?s care significantly limited by Social Determinants of Health including: Other Social Determinant of Health Critical Care Time Critical Care Time Critical Care Time: No Discharge Plan Discharge Clinical Impression: Bronchitis Patient Disposition: Home, Self-Care Instructions: Acute Bronchitis (ED) Additional Instructions: You tested negative for covid, flu, rsv. Your chest xray does not demonstrate pneumonia. Your symptoms are consistent with bronchitis. Azithromycin is an antibiotic that has been sent to your pharmacy. Take this as prescribed over the next 5 days. Guaifenesin has been sent to your pharmacy for you to take as needed for cough. Prednisone as a steroid that has been sent to your pharmacy to help with inflammation within your chest. Take this as prescribed over the next 5 days. Follow up with your primary care provider. Return with any new or worsening symptoms. In the case of an emergency call 911. Prescriptions: New guaifenesin 200 mg tablet 200 mg PO TID PRN (Reason: cough) Qty: 10 0RF prednisone 20 mg tablet 40 mg PO DAILY 5 Days Qty: 10 0RF azithromycin 250 mg tablet See Rx Instructions .ROUTE .COMPLEX Qty: 6 0RF Rx Instructions: For 250 mg dose pack: take 500 mg today (day 1), then 250 mg for 4 days (days 2-5) No Action bupropion HCl [Wellbutrin XL] 300 mg tablet extended release 24 hr 300 mg PO QAM 90 Days Qty: 90 2RF Referrals: Leodan Gil PA-C [Primary Care Provider] - Interventions: ED Discharge Assessment Last Done: 05/27/24 09:36 Discharge Date/Time: 05/27/24 09:37 Print Language: Tajik
[2024-05-27 09:36] VITALS: BP 112/63; PULSE 74; RESP 18; TEMP 37.5; O2SAT 99
== END 2024-05-27 09:37 | disposition home or self-care (01) ==
PROVIDERS: Emergency Provider Emergency Medicine; PCP Physician Assistant
DX: J40 Bronchitis, not specified as acute or chronic (principal); R05.9 Cough, unspecified; I48.91 Unspecified atrial fibrillation; Z87.891 Personal history of nicotine dependence; Z03.818 Encounter for observation for suspected exposure to other biological agents ruled out
CPT/HCPCS: 0241U; 71046; 99282; 99283

== ENCOUNTER → 2024-05-27 07:10 | Outpatient (BNV) | payer BC, SELFPAY | PROVIDERS: PCP Physician Assistant; Visit Provider Radiology Diagnostic Radiology | DX: R05.9 Cough, unspecified (principal) | CPT/HCPCS: 71046 ==

== ENCOUNTER 2024-06-28 09:29 | Outpatient (AMB) | payer BC, SELFPAY ==
--- NOTE | 2024-06-28 09:37 | MHC.PC.OV ---
Vital Signs 06/28/24 09:38 Height 5 ft 5 in Weight 154 lb BMI 25.6 BP 110/78 Blood Pressure Location Lt brachial Position Sitting Pulse 58 Pulse Source Pulse Oximeter Pulse Oximetry (%) 97 Oxygen Delivery Method Room Air Intake Visit Reasons: follow up [place] 05/02 Weed Control Inspector Required: No Accompanied by: Self / Same As Patient Allergies No Known Allergies Allergy (Verified 06/28/24 18:02) Medication List - Last Reconciled 06/28/24 by Leodan Gil PA-C bupropion HCl XL (Wellbutrin XL) 300 mg PO QAM 90 days mesalamine 4 grams NE BEDTIME Tobacco use date assessed: 06/28/24 Dental Screening Dental Screen Date: 06/28/24 Did you have a dental visit in the last 12 months?: Yes Did you have a dental problem in the last 6 months where you did not have access to dental care?: No Was dental information given to patient?: Patient has dentist HPI follow up [place] 05/02 HPI Details Patient is a 54-year-old male here today for a follow-up visit.? Patient has a past medical history significant for ulcerative colitis, depression, anxiety. Concern--> patient's previously left groin pain has been subsiding. He has been able to run more miles. .. Depression/ anxiety: Patient continues on Wellbutrin 300 mg daily with good effect on his mental health. He would like to continue this medication for now. .. Ulcerative colitis :? Followed by gastroenterology. Gets colonoscopies q 3-5 years.? Has not noted any weight loss and bowel movements have been normal. He is interested a refill on his mesalamine in case of a colitis flare-up. .. Hyperlipidemia: most recent total cholesterol elevated which has been a consistent finding for him. He will continue to work on lifestyle modifications to help reduce his total cholesterol. Trailed statin therapy in the past though had adverse side effects. [facility] Medical History Atrial fibrillation Anxiety and depression IBD (inflammatory bowel disease) Surgical History No significant past surgical history Family History Mother No problems noted. Father No problems noted. 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 1. Little interest or pleasure in doing things: not at all 2. Feeling down, depressed, or hopeless: not at all 3. Trouble falling or staying asleep, or sleeping too much: not at all 4. Feeling tired or having little energy: not at all 5. Poor appetite or overeating: not at all 6. Feeling bad about yourself - or that you are a failure or have let yourself or your family down: not at all 7. Trouble concentrating on things, such as reading the newspaper or watching television: not at all 8. Moving or speaking so slowly that other people could have noticed. Or the opposite - being so fidgety or restless that you have been moving around a lot more than usual: not at all 9. Thoughts that you would be better off or of hurting yourself in some way: not at all Total score: 0 Depression Screening Interpretation: Negative Depression Screening Done: Yes Source: Developed by Drs. Mike Garcia, Babita Faulkner, Ian Carney and colleagues, with an educational adrian from [employer]. Thrive Questionnaire Date Thrive assessed: 06/28/24 I am a: Patient What is your living situation today?: I have a steady place to live Within the past 12 months, did the food you bought not last and you didn't have the money to get more?: Never true Within the past 12 months, did you worry whether your food would run out before you got money to buy more?: Never true Do you have trouble paying for medicines?: No Do you have trouble getting transportation to medical appointments?: No Do you have trouble paying your heating and electricity bill?: No Do you have trouble taking care of your child, family member or friend?: No Do you have trouble with day-to-day activities such as bathing, preparing meals, shopping, managing finances, etc.?: No Are you currently unemployed and looking for a job?: No Are you interested in more education?: No Please select the resources that you would like help with: None Currently or been in a relationship where the following occur: No concerns reported THRIVE Score: 0 AUDIT C Alcohol Use Questionnaire (AUDIT-C) 1. How often do you have a drink containing alcohol?: Never Total Score: 0 ADDI-7 AMB Questionnaire ADDI-7 Date ADDI - 7 assessed: 06/28/24 Feeling nervous, anxious, or on edge: 0 = Not at all Not being able to stop or control worryin = Not at all Worrying too much about different things: 0 = Not at all Trouble relaxin = Not at all Being so restless that it is hard to sit still: 0 = Not at all Becoming easily annoyed or irritable: 0 = Not at all Feeling afraid as if something awful might happen: 0 = Not at all Total ADDI-7 score (0-4 normal; 5-9 mild; 10-14 moderate; 15-21 severe): 0 Source: Developed by Drs. Mike Garcia, Babita Faulkner, Ian Carney and colleagues, with an educational adrian from [employer]. Review of Systems Const Denies headache(s) Eyes Denies loss of vision ENT Denies vertigo, Denies dizziness, Denies headache(s) and Denies sore throat Card Denies chest pain, Denies leg edema and Denies lightheadedness Resp Denies cough, Denies hemoptysis and Denies wheezing GI Denies abdominal pain, Denies melena, Denies constipation, Denies diarrhea and Denies vomiting Denies dysuria, Denies urinary frequency and Denies urinary urgency Musc Denies arthralgias, Denies joint swelling, Denies numbness and Denies tingling Neuro Denies Abnormal speech present, Denies behavioral changes, Denies vertigo, Denies dizziness, Denies headache(s), Denies loss of vision, Denies memory loss, Denies numbness and Denies tingling Psych Denies anxiety, Denies behavioral changes, Denies depression, Denies memory loss and Denies panic attacks Saulo/Lymph Denies easy bleeding and Denies easy bruising Aller/Immun Denies wheezing Physical exam (Primary Care) Vital Signs: Last Vital Signs Pulse 58 06/28/24 09:38 BP 110/78 06/28/24 09:38 Pulse Ox 97 06/28/24 09:38 Oxygen Delivery Method Room Air 06/28/24 09:38 BMI result Body Mass Index 25.6 Tobacco/Smoking Status: Tobacco use Status Tobacco use date assessed 06/28/24 06/28/24 09:42 Patient Tobacco Use Status Former Tobacco user 06/28/24 09:42 e-Cigarette/Vaping Use Never Used 06/28/24 09:42 PHQ-9: PHQ-9 Score PHQ-9: Total score 0 06/28/24 09:47 Depression Screening Interpretation: Negative Thrive Assessment: Date of Thrive Assessment Date Thrive assessed 06/28/24 06/28/24 09:42 Currently or been in a relationship where the following occur: No concerns reported Const General: healthy appearing, no acute distress, alert and awake Nutritional Appearance: well nourished Orientation/consciousness: oriented to person, oriented to place and oriented to time HENMT Ears: TM's normal bilaterally General nose exam: Normal nasal mucous membranes and turbinates present Eyes Conjunctivae: conjunctivae normal Sclerae: sclerae normal Pupils: Equal, round and reactive pupils present Neck Neck: Yes no lymphadenopathy and Yes no JVD Thyroid: Thyroid normal Carotids: no bruits Resp Effort & Inspection: normal respiratory effort and not tachypneic Auscultation: no crackles, no rales, no rhonchi and no wheezes Cardio Rate: regular rate Rhythm: regular rhythm Heart sounds: no murmurs and normal S1 and S2 GI Palpation (GI): Soft to palpation, nontender, no hepatomegaly and no splenomegaly Auscultation: normal bowel sounds Skin General skin exam: no rashes or lesions noted and dry skin Neuro General: oriented to person, oriented to place and oriented to time Cranial nerves: Yes Equal, round and reactive pupils present Speech: No Abnormal speech present Gait exam (Neuro): Normal gait present Motor exam (neuro): no tremor noted Extrem Right upper extremity: full ROM Left upper extremity: full ROM Right lower extremity: full ROM; no edema Left lower extremity: full ROM; no edema Psych Mental Status: mental status grossly normal Speech and movement: Normal speech and movement present Affect: normal affect Attitude: cooperative Thought process: Normal thought process present Coding Level of Care Code Est Pt Level 4 (57830) Diagnoses ADDI (generalized anxiety disorder) F41.1 Borderline high cholesterol E78.9 IBD (inflammatory bowel disease) K52.9 Assessment & Plan Assessment & Plan (1) ADDI (generalized anxiety disorder): Code(s): F41.1 - Generalized anxiety disorder Category: Medical Plan: Patient continues with Wellbutrin which has had a good effect on his anxiety. (2) Borderline high cholesterol: Code(s): E78.9 - Disorder of lipoprotein metabolism, unspecified Category: Medical Plan: Patient continues to work on lifestyle and dietary modifications. Does have history of borderline high cholesterol. Goal total cholesterol to be below 200. (3) IBD (inflammatory bowel disease): Code(s): K52.9 - Noninfective gastroenteritis and colitis, unspecified Category: Medical Plan: Patient is up-to-date with his colonoscopies. Has not any unmanageable flares recently. Has not had to use any mesalamine in quite some time. He would like to have some mesalamine on hand in case of a colitis flare. Orders: Orders Prostate Specific Antigen Scr 06/28/24 R97.20 - Elevated prostate specific antigen [PSA], Z12.5 - Encounter for screening for malignant neoplasm of prostate Medications: Refilled bupropion HCl XL (Wellbutrin XL) 300 mg PO QAM 90 tabs 2RF 90 days F32.9 - Major depressive disorder, single episode, unspecified, F41.9 - Anxiety disorder, unspecified
[2024-06-28 09:38] VITALS: BP 110/78; PULSE 58; O2SAT 97; BMI 25.6
--- OUTSIDE RECORDS SUMMARY | 2024-06-28 10:45 | XMS_ITS ---
Author Organization [facility] Address [address] [place] [id number] Care Team Providers Care Advanced Practice Registered Nurse Name Role Phone Loedan Gil Primary Care Provider Unavailab Indio Lozada Jr REASON FOR VISIT Patient presents today for inflammation in colon Encounters Encounter Location Date Provider Diagnosis [facility] [address] [place] [id number] 01/05/2023 Indio Taylor Jr Plan Of Treatment No Information Progress Notes * CECE MAROB: 1 (54 yo M)Acc No.[id number]:01/05/2023 Progress Notes Patient:SONIA LINDSEY Provider:?Indio Taylor MD :1970???Age:52 Y???Sex:Male Vish e:01/05/2023 Address: [address] [id number] Pcp:Leodan Gil Subjective: * Chief Complaints: * ???1. Patient presents today for inflammation in colon. * Medical History:? Objective: * Vitals:? Assessment: Plan: * Treatment: * * The named appointment provid er may or may not be the originator of this progress note, and it is not deemed complete until electronically signed by the appointment provider. Sign off status: Pending * Provider:?Indio Taylor MD Date:?0 01/05/2023 Generated for Tatum patten/Fadia/eTransmitting on:?06/28/2024 10:45 AM EST
--- OUTSIDE RECORDS SUMMARY | 2024-06-28 10:45 | XMS_ITS ---
Author Organization [facility] Address [address] [place] [phone] Care Team Providers Care Edge Banding Off Bearer Name Role Phone JefferyGuerline gayles Primary Care Provider Unavailab Indio Lozada Jr REASON FOR VISIT cancel appt Encounters Encounter Location Date Provider Diagnosis [facility] [address] [place] [address] 01/03/2023 Indio Taylor Jr Plan Of Treatment No Information Progress Notes * CECE MAROB: 1 (52 yo M)Acc No.[id number]:01/03/2023 Patient:?SONIA MAR :1970???Age:52 Y???Sex:Male Address: [place] [address] * true * Date:? Generated for Estephaniei earline/Fadia/eTransmitting on:?06/28/2024 10:45 AM EST
--- OUTSIDE RECORDS SUMMARY | 2024-06-28 10:45 | XMS_ITS | Patient Health Record ---
Author Organization [facility] Address [address] [place] [address] Care Team Providers Care Chief Of Staff Name Role Phone Leodan Gil Primary Care Provider Unavailab Indio Lozada Jr Unavailable Allergies No Known Allergies Reason For Referral No Information Medications Medication SIG (Take, Route, Fr equency, Duration) Notes Start Date End Date Status Wellbutrin XL 300 MG 1 tablet in the mor tammy Orally Once a day Active Mesalamine 4 GM 1 enema Rectal Once a day for 30 days 06/06/2019 Active Immunizations Vaccine Route Administration Date Status Comme nts Influenza Unknown 04/25/2019 Administered Influenza Unknown 12/24/2020 Administered Problems Problem Type SNOMED Code ICD Code Onset Dates Problem Status W/U Status Risk Notes Problem 286624792 Left upper quadrant pain (R10.12) Active confirmed Problem 90002533 Ulcerative colitis without complications, unspecified location (K51.90) Active confirmed Problem 576529550 Abnormal liver function tests (R94.5) Active confirmed Problem Ulcerative colitis (28956036) Ulcerative colitis (K51.90) Active confirmed Plan Of Treatment Future Test Test Name Order Date COLONOSCOPY 06/04/2015 COLONOSCOPY 06/06/2019 COLONOSCOPY 11/26/2021 Insurance Providers Payer Name Payer Address Payer Phone Subscriber Number Group Number Insured Name Patient Relationship to Insured Coverage Start Date Coverage End Date [employer] [address] [place] [phone] [id number] SONIA PLUMMER Self - patient is the insured Medical (General) History Medical History History ICD Code Anxiety/depression elevated cholesterol ulcerative colitis, colonosc opy 11/26/15 showing quiescent colitis throughout and mild active chronic colitis involving the rectosigmoid. Previous treatment to mesalamine as tablets and enemas, prednisone. Diagnosis date 2000. Atrial fibrillation, 2 separate episodes in his 20s Surgical History Surgery Date(Month/Year)
== END 2024-06-28 10:01 | disposition home or self-care (01) ==
PROVIDERS: PCP Physician Assistant; Visit Provider Physician Assistant
DX: F41.1 Generalized anxiety disorder (principal); E78.9 Disorder of lipoprotein metabolism, unspecified; K52.9 Noninfective gastroenteritis and colitis, unspecified

== ENCOUNTER 2024-06-28 17:27 | Emergency (ER) | payer BC, SELFPAY ==
[2024-06-28 17:59] VITALS: BP 115/71; PULSE 63; RESP 18; TEMP 37; O2SAT 98; BMI 25.6
--- NOTE | 2024-06-28 18:00 | ED_ITS ---
HPI - Back Pain/Injury General Chief Complaint: Back Pain/Injury Stated Complaint: back spasms Time Seen by Provider: 06/28/24 18:13 Source: patient and RN notes reviewed Mode of arrival: ambulatory Limitations: no limitations History of Present Illness ED Provider: Elizabeth Scott PA-C HPI Narrative: This is a [id number]-pip-male, with no known medical problems, who presents to the ER with complaints of left sided back spasm. 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 Patient reports that he has a history of back spasms in his 20s however denies any other issues with his back. Patient denies taking any medications at home prior to his arrival here. Patient reports his spasm in his back has improved over the course of several hours however needed to be seen here in the emergency department in his unsure if he is able to return back to work. He denies any numbness, tingling or weakness. No rib pain. No chest pain or shortness for breath. No other complaints or concerns at this time. MD elicited complaint: back pain Pertinent past history: prior back pain Quality: spasming Location: thoracic spine Radiation: none Exacerbating factors: movement Relieving factors: immobilization Context: turning/twisting Associated symptoms: denies other symptoms Related Data Home Medications ?Medication ?Instructions ?Recorded ?Confirmed mesalamine 4 gram/60 mL enema 4 g OK BEDTIME 06/28/24 06/28/24 Previous Rx's ?Medication ?Instructions ?Recorded bupropion HCl 300 mg 24 hr tablet, 300 mg PO QAM 90 days #90 tabs 06/28/24 extended release (Wellbutrin XL) Allergies Allergy/AdvReac Type Severity Reaction Status Date / Time No Known Allergies Allergy Verified 06/28/24 18:02 Review of Systems Review of Systems: Yes all other systems are reviewed and are negative Constitutional: Constitutional: Reports as per [facility] Past Medical History Medical History Atrial fibrillation Anxiety and depression IBD (inflammatory bowel disease) Surgical History No significant past surgical history Family History Family History Mother No problems noted. Father No problems noted. 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 Current occupational exposures/hazards: No Cognitive needs: No Hearing needs: No Vision needs: Yes (glasses) Physical Exam Vital Signs: Vital Signs: Last Vital Signs Temp 98.6 F 06/28/24 18:35 Pulse 63 06/28/24 18:35 Resp 18 06/28/24 18:35 BP 115/71 06/28/24 18:35 Pulse Ox 98 06/28/24 18:35 O2 Del Method Room Air 06/28/24 18:35 BMI result Body Mass Index 25.6 Const: General: cooperative, comfortable and no acute distress Orientation/consciousness: patient oriented x3 Limitations: no limitations HEENT: Head: Yes normal to inspection, Yes normocephalic and Yes atraumatic Ears: hearing grossly normal bilaterally General nose exam: Normal external nose present Face and sinus: Yes normal facial exam Mouth: Normal oral and palatal mucosa present, oropharynx normal and moist mucous membranes Throat: Yes posterior oropharynx normal Eyes: General: appearance normal, both eyes and all related structures Eyelids: Yes eyelids normal Conjunctivae: conjunctivae normal Sclerae: sclerae normal Pupils: Equal, round and reactive pupils present EOM: EOMs intact bilaterally Neck: Neck: Yes normal visual inspection, Yes full ROM and Yes no lymphadenopathy Lymphatic: no lymphadenopathy noted Chest: Chest palpation & inspection: normal inspection of the chest Resp: Effort & Inspection: normal respiratory effort and able to speak in complete sentences Auscultation: clear to auscultation bilaterally, no crackles, no rales, no rhonchi and no wheezes Cardio: Rate: regular rate Rhythm: regular rhythm Heart sounds: S1 normal heart sound present and S2 normal heart sound present GI: Inspection: Yes normal to inspection Back/Spine/Pelvis: Other: Tenderness palpation along the left thoracic paraspinous muscles with spasm noted. Patient ambulatory with steady gait. No tenderness overlying the left ribs. No overlying skin changes, warmth, or rashes. Skin: General skin exam: no rashes or lesions noted Trauma: no lacerations or abrasions Wounds: no wounds Neuro: General: patient oriented x3 and moves all extremities Cranial nerves: Yes Equal, round and reactive pupils present Extrem: General: Yes normal to inspection Right upper extremity: normal to inspection Left upper extremity: normal to inspection Right lower extremity: normal to inspection Left lower extremity: normal to inspection Medical Decision Making Medical Decision Making MDM Narrative: This is a 54-year-old male who presents emergency department for evaluation of mid back spasm. On arrival, vital signs within normal limits. He has tenderness palpation along the left thoracic paraspinous muscles. He has no chest pain, no shortness a breath. No numbness tingling. Discussed with patient, that this is consistent with a muscle spasm plastic imaging is not warranted at this time. Given nature of his job patient needs to have several days off has he is putting himself as well as patient is at risk if back spasms during call. He has no red flag back symptoms. Discussed strict return precautions. He understands and agrees with plan. Stable for discharge. Differential Diagnosis Differential Diagnoses: The differential diagnosis associated with the presentation includes Spasm, strain, sprain, contusion, fracture-unlikely Discharge Plan Discharge Clinical Impression: Spasm of thoracic back muscle Patient Disposition: Home, Self-Care Instructions: Muscle Spasm (ED), Back Pain (ED) Additional Instructions: You were seen in the emergency department due to back pain. You have a muscle spasm which is causing you to have the symptoms. Please drink plenty of fluids, gentle stretching, massage, heat or ice can also help. Alternate between ibuprofen and or Tylenol as needed for pain and symptoms. If any new or worsening symptoms occur including but not limited to worsening pain, fevers, chills, chest pain, shortness of breath, please seek emergent care. Prescriptions: No Action bupropion HCl [Wellbutrin XL] 300 mg tablet extended release 24 hr 300 mg PO QAM 90 Days Qty: 90 2RF mesalamine 4 gram/60 mL enema 4 g OK BEDTIME Stand Alone Forms: Work/School Release Interventions: ED Discharge Assessment Last Done: 06/28/24 18:35 Discharge Date/Time: 06/28/24 18:37 Print Language: Spanish
[2024-06-28 18:35] VITALS: BP 115/71; PULSE 63; RESP 18; TEMP 37; O2SAT 98
== END 2024-06-28 18:37 | disposition home or self-care (01) ==
PROVIDERS: Emergency Provider Emergency Medicine; PCP Physician Assistant
DX: M62.830 Muscle spasm of back (principal)
CPT/HCPCS: 99282

== ENCOUNTER → 2024-06-29 08:34 | Outpatient (BNVA) | payer OTHER, SELFPAY | PROVIDERS: PCP Physician Assistant; Visit Provider Physician Assistant | DX: S29.012A Strain of muscle and tendon of back wall of thorax, initial encounter (principal); X50.1XXA Overexertion from prolonged static or awkward postures, initial encounter | CPT/HCPCS: 99202 ==

== ENCOUNTER → 2024-07-04 08:16 | Outpatient (BNVA) | payer OTHER, SELFPAY | PROVIDERS: PCP Physician Assistant; Visit Provider Internal Medicine | DX: S39.012A Strain of muscle, fascia and tendon of lower back, initial encounter (principal); X50.1XXA Overexertion from prolonged static or awkward postures, initial encounter; Z02.79 Encounter for issue of other medical certificate | CPT/HCPCS: 99213 ==

== ENCOUNTER 2024-08-25 12:41 | Emergency (ER) | payer BC, SELFPAY ==
--- NOTE | ~2024-08-25 | XR_ITS ---
CLINICAL HISTORY: twisting injury, pain 3 view left ankle 3 view left foot Comparison: None Findings: There are 6 mm and 3 mm ossific densities adjacent to the medial aspect of the talus. There is a 4 mm well corticated ossific density adjacent to the posterior aspect of the calcaneus. No dislocation. Normal variant bipartite medial hallux sesamoid. No significant arthritic change or erosions. There is an ankle effusion. No radiopaque foreign body. Soft tissue swelling laterally, anteriorly and posteriorly. Increased attenuation in the pre Achilles fat pad. IMPRESSION: 1. Small avulsion fractures involve the medial aspect of the talus. 2. Small ossific density adjacent to the posterior aspect of the calcaneus may be sequela of remote trauma or related to calcific tendinitis. 3. No dislocation. 4. Increased attenuation in the pre Achilles fat pad can be seen with edema or hemorrhage in the setting of muscle injury, tendon injury, tendinitis or bursitis. This document has been electronically signed by: Aylin Feng DO on 08/25/2024 14:22:11
[2024-08-25 13:03] VITALS: BP 116/71; PULSE 79; RESP 18; TEMP 36.8; O2SAT 98; BMI 25.2
--- NOTE | 2024-08-25 13:04 | ED.LOWEXIN ---
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 States believes he twisted ankle after stepping on treat trunk/branch. Was ambulatory with pain after incident. Denies fall including head trauma/LOC. Reports some paresthesias toes. Denies weakness, injury to other area Related Data Home Medications ?Medication ?Instructions ?Recorded ?Confirmed mesalamine 4 gram/60 mL enema 4 g RI BEDTIME 06/28/24 06/28/24 Previous Rx's ?Medication ?Instructions ?Recorded bupropion HCl 300 mg 24 hr tablet, 300 mg PO QAM 90 days #90 tabs 06/28/24 extended release (Wellbutrin XL) Allergies Allergy/AdvReac Type Severity Reaction Status Date / Time No Known Allergies Allergy Verified 08/25/24 13:03 Review of Systems Review of Systems: Yes all other systems are reviewed and are negative Constitutional: Constitutional: Reports as per [facility] Past Medical History Attestation statement: The following information was validated with the patient. Source: old records reviewed Medical History Atrial fibrillation Anxiety and depression IBD (inflammatory bowel disease) Surgical History No significant past surgical history Family History Family History Mother No problems noted. Father No problems noted. 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 Current occupational exposures/hazards: No Cognitive needs: No Hearing needs: No Vision needs: Yes (glasses) Physical Exam Vital Signs: Vital Signs: Last Vital Signs Temp 98.3 F 08/25/24 16:05 Pulse 80 08/25/24 16:05 Resp 16 08/25/24 16:05 BP 122/70 08/25/24 16:05 Pulse Ox 97 08/25/24 16:05 O2 Del Method Room Air 08/25/24 16:05 BMI result Body Mass Index 25.2 Const: General: cooperative, healthy appearing and no acute distress Orientation/consciousness: patient oriented x3 Limitations: no limitations HEENT: Head: Yes normal to inspection and Yes atraumatic Ears: hearing grossly normal bilaterally General nose exam: Normal external nose present Face and sinus: Yes normal facial exam Eyes: General: appearance normal, both eyes and all related structures EOM: EOMs intact bilaterally Neck: Neck: Yes normal visual inspection and Yes no meningeal signs Resp: Effort & Inspection: normal respiratory effort and no respiratory distress Cardio: Rate: regular rate Skin: Rashes: no rashes Wounds: no wounds Neuro: General: patient oriented x3, tone normal and no meningeal signs Cranial nerves: Yes CN's II-XII intact bilaterally Gait exam (Neuro): Normal gait present Extrem: Other: Left ankle/proximal foot with appreciable swelling. Diffusely tender to palpation. Limited ROM to ankle secondary to pain. Neurovascularly intact distally. Left knee nontender. Full range of motion intact. No erythema/warmth or crepitus Course Course Course Narrative: This is an RME performed by Stas Singer CNP: Additional HPI, ROS, PE not included below will be deferred to primary provider. Patient is a 54-year-old male who presents emergency department for evaluation of traumatic left ankle pain. Reports racing subsequently twisted the ankle no associated fall. Subsequent pain and swelling. Plan: XR ankle/foot 1447--XR foot LT min 3V/XR ankle LT min 3V IMPRESSION: 1. Small avulsion fractures involve the medial aspect of the talus. 2. Small ossific density adjacent to the posterior aspect of the calcaneus may be sequela of remote trauma or related to calcific tendinitis. 3. No dislocation. 4. Increased attenuation in the pre Achilles fat pad can be seen with edema or hemorrhage in the setting of muscle injury, tendon injury, tendinitis or bursitis. > patient without any calcaneus or Achilles tendon tenderness on exam. Negative Emerson tests > patient will be placed in posterior short-leg to follow up with Orthopedics and be nonweightbearing Results discussed with patient including worrisome signs and symptoms and strict return precautions, and when to return to the emergency department. They verbalized understanding and feel safe for discharge at this time. 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 On exam vital signs stable, NAD, nontoxic appearing, physical exam as noted above. Concern for ankle sprain vs fracture. No evidence of septic joint/arthritis. No evidence of Achilles rupture. Unlikely DVT. No evidence of septic joint Plan: X-ray Please refer to course for remaining clinical decision making, interpretation of labs/imaging results, and discussions with consultants and/or family members. Differential Diagnosis Differential Diagnoses: The differential diagnosis associated with the presentation includes As above Admission/Observation Consideration of admission/observation: Escalation of care including admission/observation considered Independent Interpretation I performed an independent interpretation of an: Plain X-Ray Radiology Impression Discussion of test interpretation with radiology: I have reviewed the radiologist's reading. External Record Review External record reviewed: Inpatient record, Office record, Outpatient record, Prior outpatient labs, Prior outpatient radiology, Primary care record and Outside ED record Tests considered The following testing was considered but not selected: As above Prescription Management I considered prescription management with: Pain Medication Chronic Conditions Patient?s care impacted by: Other Social Determinants Patient?s care significantly limited by Social Determinants of Health including: Other Social Determinant of Health Procedures Orthopedic Splinting/Casting Injury #1: Side: left Lower Extremity Injury Location: foot Lower Extremity Immobilizer: posterior splint Other Orthopedic Equipment: crutches Discharge Plan Discharge Clinical Impression: Fracture of talus Patient Disposition: Home, Self-Care Instructions: Ankle Fracture (DC) Additional Instructions: You have a fracture of your and talus bone in your ankle Keep splint on, dry and clean DO NOT PUT ANY WEIGHT ON YOUR LEFT LEG. USE CRUTCHES Do not get splint wet. Keep dry and clean Ice and elevate Take Tylenol and ibuprofen If toes become increasingly swollen, numb, discolored or pain is unbearable remove splint and return to the ED immediately YOU NEED TO FOLLOW UP WITH THE TRANSMISSION MAINTENANCE SUPERVISOR IN 1 WEEK. CALL TUESDAY MORNING TO MAKE AN APPOINTMENT Prescriptions: No Action bupropion HCl [Wellbutrin XL] 300 mg tablet extended release 24 hr 300 mg PO QAM 90 Days Qty: 90 2RF mesalamine 4 gram/60 mL enema 4 g RI BEDTIME Referrals: [facility] Orthopedic Surgeons [Provider Group] - 1 week Interventions: ED Discharge Assessment Last Done: 08/25/24 16:05 Discharge Date/Time: 08/25/24 16:06 Print Language: Tamazight
[2024-08-25 15:02] VITALS: BP 122/70; PULSE 80; RESP 16; TEMP 36.8; O2SAT 97
[2024-08-25 16:05] VITALS: BP 122/70; PULSE 80; RESP 16; TEMP 36.8; O2SAT 97
== END 2024-08-25 16:06 | disposition home or self-care (01) ==
PROVIDERS: Emergency Provider Emergency Medicine; PCP Physician Assistant
DX: S92.152A Displaced avulsion fracture (chip fracture) of left talus, initial encounter for closed fracture (principal); X50.1XXA Overexertion from prolonged static or awkward postures, initial encounter; M25.572 Pain in left ankle and joints of left foot; Y93.02 Activity, running; Y92.9 Unspecified place or not applicable; Y99.9 Unspecified external cause status
CPT/HCPCS: 29515; 73610; 73630; 99283; 99284

== ENCOUNTER → 2024-08-25 13:03 | Outpatient (BNV) | payer BC, SELFPAY | PROVIDERS: Emergency Provider Emergency Medicine; PCP Physician Assistant; Visit Provider Radiology Diagnostic Radiology | DX: S92.152A Displaced avulsion fracture (chip fracture) of left talus, initial encounter for closed fracture (principal) | CPT/HCPCS: 73610; 73630 ==

== ENCOUNTER 2024-08-28 14:38 | Outpatient (AMB) | payer BC, SELFPAY ==
--- NOTE | 2024-08-28 14:52 | MHC.PC.OV ---
Vital Signs 08/28/24 14:53 Height 5 ft 5 in Weight 154 lb BMI 25.6 BP 106/60 Blood Pressure Location Lt brachial Position Sitting Pulse 97 Pulse Source Pulse Oximeter Pulse Oximetry (%) 98 Oxygen Delivery Method Room Air Intake Visit Reasons: [facility] 08/25 Intake Note: Pt is request a work note. 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 This injury occurred during a trail race on a descent. The injury manifests as pain mainly on accidental strain or use and is relieved by avoiding strenuous activity. 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 He is currently using crutches and in a temporary splint of his left lower extremity Currently, he is unable to sustain prolonged standing, walking, or running, cannot ascend ladders, use protective boots, or engage in activities requiring knee movement like squatting or crawling. He has been managing pain with ibuprofen and awaits further orthopedic assessment on Tuesday. [facility] Medical History Atrial fibrillation Anxiety and depression IBD (inflammatory bowel disease) Surgical History No significant past surgical history Family History Mother No problems noted. Father No problems noted. 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 1. Little interest or pleasure in doing things: not at all 2. Feeling down, depressed, or hopeless: not at all 3. Trouble falling or staying asleep, or sleeping too much: not at all 4. Feeling tired or having little energy: not at all 5. Poor appetite or overeating: not at all 6. Feeling bad about yourself - or that you are a failure or have let yourself or your family down: not at all 7. Trouble concentrating on things, such as reading the newspaper or watching television: not at all 8. Moving or speaking so slowly that other people could have noticed. Or the opposite - being so fidgety or restless that you have been moving around a lot more than usual: not at all 9. Thoughts that you would be better off or of hurting yourself in some way: not at all Total score: 0 Source: Developed by Drs. Mike Garcia, Babita Faulkner, Ian Carney and colleagues, with an educational adrian from [employer]. Thrive Questionnaire Date Thrive assessed: 08/28/24 I am a: Patient What is your living situation today?: I have a steady place to live Within the past 12 months, did the food you bought not last and you didn't have the money to get more?: Never true Within the past 12 months, did you worry whether your food would run out before you got money to buy more?: Never true Do you have trouble paying for medicines?: No Do you have trouble getting transportation to medical appointments?: No Do you have trouble paying your heating and electricity bill?: No Do you have trouble taking care of your child, family member or friend?: No Do you have trouble with day-to-day activities such as bathing, preparing meals, shopping, managing finances, etc.?: No Are you currently unemployed and looking for a job?: No Are you interested in more education?: No Please select the resources that you would like help with: None Currently or been in a relationship where the following occur: No concerns reported THRIVE Score: 0 AUDIT C Alcohol Use Questionnaire (AUDIT-C) 1. How often do you have a drink containing alcohol?: Never Total Score: 0 ADDI-7 AMB Questionnaire ADDI-7 Date ADDI - 7 assessed: 06/28/24 Feeling nervous, anxious, or on edge: 0 = Not at all Not being able to stop or control worryin = Not at all Worrying too much about different things: 0 = Not at all Trouble relaxin = Not at all Being so restless that it is hard to sit still: 0 = Not at all Becoming easily annoyed or irritable: 0 = Not at all Feeling afraid as if something awful might happen: 0 = Not at all Total ADDI-7 score (0-4 normal; 5-9 mild; 10-14 moderate; 15-21 severe): 0 Source: Developed by Drs. Mike Garcia, Babita Faulkner, Ian Carney and colleagues, with an educational adrian from [employer]. Review of Systems Const Denies headache(s) Eyes Denies loss of vision ENT Denies vertigo, Denies dizziness, Denies headache(s) and Denies sore throat Card Denies chest pain, Denies leg edema and Denies lightheadedness Resp Denies cough, Denies hemoptysis and Denies wheezing GI Denies abdominal pain, Denies melena, Denies constipation, Denies diarrhea and Denies vomiting Denies dysuria, Denies urinary frequency and Denies urinary urgency Musc Denies arthralgias, Denies joint swelling, Denies numbness and Denies tingling Neuro Denies Abnormal speech present, Denies behavioral changes, Denies vertigo, Denies dizziness, Denies headache(s), Denies loss of vision, Denies memory loss, Denies numbness and Denies tingling Psych Denies anxiety, Denies behavioral changes, Denies depression, Denies memory loss and Denies panic attacks Saulo/Lymph Denies easy bleeding and Denies easy bruising Aller/Immun Denies wheezing Physical exam (Primary Care) Vital Signs: Last Vital Signs Pulse 97 08/28/24 14:53 BP 106/60 08/28/24 14:53 Pulse Ox 98 08/28/24 14:53 Oxygen Delivery Method Room Air 08/28/24 14:53 BMI result Body Mass Index 25.6 Tobacco/Smoking Status: Tobacco use Status Tobacco use date assessed 06/28/24 08/28/24 14:54 Patient Tobacco Use Status Former Tobacco user 08/28/24 14:54 e-Cigarette/Vaping Use Never Used 08/28/24 14:54 PHQ-9: PHQ-9 Score PHQ-9: Total score 0 08/28/24 14:54 Thrive Assessment: Date of Thrive Assessment Date Thrive assessed 08/28/24 08/28/24 14:54 Currently or been in a relationship where the following occur: No concerns reported Const General: healthy appearing, no acute distress, alert and awake Nutritional Appearance: well nourished Orientation/consciousness: oriented to person, oriented to place and oriented to time HENMT Ears: TM's normal bilaterally General nose exam: Normal nasal mucous membranes and turbinates present Eyes Conjunctivae: conjunctivae normal Sclerae: sclerae normal Pupils: Equal, round and reactive pupils present Neck Neck: Yes no lymphadenopathy and Yes no JVD Thyroid: Thyroid normal Carotids: no bruits Resp Effort & Inspection: normal respiratory effort and not tachypneic Auscultation: no crackles, no rales, no rhonchi and no wheezes Cardio Rate: regular rate Rhythm: regular rhythm Heart sounds: no murmurs and normal S1 and S2 GI Palpation (GI): Soft to palpation, nontender, no hepatomegaly and no splenomegaly Auscultation: normal bowel sounds Skin General skin exam: no rashes or lesions noted and dry skin Neuro General: oriented to person, oriented to place and oriented to time Cranial nerves: Yes Equal, round and reactive pupils present Speech: No Abnormal speech present Gait exam (Neuro): Normal gait present Motor exam (neuro): no tremor noted Extrem Right upper extremity: full ROM Left upper extremity: full ROM Right lower extremity: full ROM; no edema Left lower extremity: full ROM; no edema Psych Mental Status: mental status grossly normal Speech and movement: Normal speech and movement present Affect: normal affect Attitude: cooperative Thought process: Normal thought process present Coding Level of Care Code Est Pt Level 3 (03999) Diagnoses Closed nondisplaced avulsion fracture of left talus with routine healing, subsequent encounter S92.155D Encounter type: subsequent encounter Fracture type: closed Fracture alignment: nondisplaced Fracture healing: with routine healing Assessment & Plan Assessment & Plan (1) Avulsion fracture of left talus: Code(s): S92.152A - Displaced avulsion fracture (chip fracture) of left talus, initial encounter for closed fracture Category: Medical Qualifiers: Encounter type: subsequent encounter Fracture type: closed Fracture alignment: nondisplaced Fracture healing: with routine healing Qualified Code(s): S92.155D - Nondisplaced avulsion fracture (chip fracture) of left talus, subsequent encounter for fracture with routine healing Plan: The patient is already aware of the avulsion fracture, initially identified during an ER visit. Plans include a follow-up orthopedic consultation on Tuesday to review the injury and discuss appropriate treatment options, possibly including casting. Light-duty at work has been advised, with anticipated healing taking approximately six to eight weeks. Further management will be guided by orthopedic assessment.
[2024-08-28 14:53] VITALS: BP 106/60; PULSE 97; O2SAT 98; BMI 25.6
--- OUTSIDE RECORDS SUMMARY | 2024-08-28 15:56 | XMS_ITS | Patient Health Record ---
Author Organization [facility] Address [address] [place] [address] Care Team Providers Care Manifold Operator Name Role Phone Leodan Gil Primary Care [...] Problem Status W/U Status Risk Notes Problem [id number] Left upper quadrant pain (R10.12) Active confirmed Problem [id number] Ulcerative colitis without complications, unspecified location (K51.90) Active confirmed Problem [id number] Abnormal liver function tests (R94.5) Active confirmed Problem Ulcerative colitis (K51.90) Active confirmed Plan Of Treatment Future Test Test Name Order Date COLONOSCOPY 06/04/2015 COLONOSCOPY 06/06/2019 COLONOSCOPY 11/26/2021 Insurance Providers Payer Name Payer Address Payer Phone Subscriber Number Group Number Insured Name Patient Relationship to Insured Coverage Start Date Coverage End Date [facility] [address] [facility] [phone] [id number] SONIA PLUMMER Self - patient is the insured Medical (General) History Medical History History ICD Code Anxiety/depression elevated cholesterol ulcerative colitis, colonosc opy 8/3/16 showing quiescent colitis throughout and mild active chronic colitis involving the rectosigmoid. Previous treatment to mesalamine as tablets and enemas, prednisone. Diagnosis date 2000. Atrial fibrillation, 2 separate episodes in his 20s Surgical History Surgery Date(Month/Year)
== END 2024-08-28 15:14 | disposition home or self-care (01) ==
LOC: HO.HMCH 14:45
PROVIDERS: PCP Physician Assistant; Visit Provider Physician Assistant
DX: S92.155D Nondisplaced avulsion fracture (chip fracture) of left talus, subsequent encounter for fracture with routine healing (principal)

== ENCOUNTER → 2024-08-28 14:38 | Outpatient (BNVA) | payer BC, SELFPAY | PROVIDERS: PCP Physician Assistant; Visit Provider Physician Assistant | DX: Z13.89 Encounter for screening for other disorder (principal) ==

== ENCOUNTER 2024-09-03 10:29 | Outpatient (REF) | payer BC, SELFPAY ==
--- NOTE | ~2024-09-03 | XR_ITS ---
EXAMINATION: XR ANKLE, LEFT CLINICAL INFORMATION: M25.572 - Pain in left ankle and joints of left foot COMPARISON: None available. TECHNIQUE: AP, lateral, and mortise views of the left ankle. FINDINGS: No fracture, dislocation, or suspicious bone lesion. Normal bone mineralization. Normal alignment. Ankle mortise is intact. The talar dome is normal. Minimal degenerative changes in the tibiotalar joint. There is a small Achilles enthesophyte. No significant ankle joint effusion. There is circumferential soft tissue swelling about the ankle. XR/XR ankle LT min 3V IMPRESSION: 1. No acute bony abnormalities. Diffuse soft tissue swelling. Electronically signed by: Moody Patel MD 09/03/2024 01:35 PM EDT
--- OUTSIDE RECORDS SUMMARY | 2024-09-04 11:36 | XMS_ITS | Patient Health Record ---
Author Organization [facility] Address [address] [place] [address] Care Team Providers Care Teaching Manager Name Role Phone Leodan Gil Primary Care Provider Unavailab Indio Lozada Jr Unavailable [phone] Allergies No Known Allergies Reason For Referral [...] Problem Status W/U Status Risk Notes Problem [id number] Left upper quadrant pain (R10.12) Active confirmed Problem 47524059 Ulcerative colitis without complications, unspecified location (K51.90) Active confirmed Problem 202832486 Abnormal liver function tests (R94.5) Active confirmed Problem Ulcerative colitis (K51.90) Active confirmed Plan Of Treatment Future Test Test Name Order Date COLONOSCOPY 06/04/2015 COLONOSCOPY 06/06/2019 COLONOSCOPY 11/26/2021 Insurance Providers Payer Name Payer Address Payer Phone Subscriber Number Group Number Insured Name Patient Relationship to Insured Coverage Start Date Coverage End Date [facility] [address] [place] [phone] [id number] SONIA PLUMMER Self - patient is the [...]
== END 2024-09-03 10:30 | disposition home or self-care (01) ==
LOC: HO.HOSX 10:29
DX: S91.15 Open bite of toe without damage to nail (principal)
CPT/HCPCS: 73610

== ENCOUNTER 2024-09-03 12:55 | Outpatient (AMB) | payer BC, SELFPAY ==
[2024-09-03 13:10] VITALS: BMI 25.6
--- NOTE | 2024-09-03 13:10 | A.OFFVIS_ITS ---
Vital Signs 09/03/24 13:10 Height 5 ft 5 in Weight 154 lb BMI 25.6 Intake Visit Reasons: FC-Lt ankle talus fx Intake Note: Gavin is a 54 year old male who presents today for an ED follow up status post avulsion fracture of the medial aspect of the talus, DOI: 08/25/24. Patient reports injury occurred during a trail race on a descent, thinks he stepped on a tree branch. At the ED he was placed on a splint and given crutches. Patient was seen by PCP on 08/28/24. 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 Patient reports pain on the lateral aspect of his left lower leg as well as the medial aspect of his left ankle. Patient states he has lost balance a few times causing him to put pressure on his ankle. Denies numbness or tingling. Patient states he is not taking anything for pain. Denies prior injuries or surgeries to the left ankle. Allergies No Known Allergies Allergy (Verified 09/03/24 13:11) HPI HPI FC-Lt ankle talus fx: Details: Gavin is a 54 year old male who presents today for an ED follow up status post avulsion fracture of the medial aspect of the talus, DOI: 08/25/24. Patient reports injury occurred during a trail race on a descent, thinks he stepped on a tree branch. At the ED he was placed on a splint and given crutches. Patient was seen by PCP on 08/28/24. 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 Patient reports pain on the lateral aspect of his left lower leg as well as the medial aspect of his left ankle. Patient states he has lost balance a few times causing him to put pressure on his ankle. Denies numbness or tingling. Patient states he is not taking anything for pain. Denies prior injuries or surgeries to the left ankle. [facility] Medical History Atrial fibrillation Anxiety and depression IBD (inflammatory bowel disease) Surgical History No significant past surgical history Family History Mother No problems noted. Father No problems noted. 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 Current occupational exposures/hazards: No Cognitive needs: No Hearing needs: No Vision needs: Yes (glasses) Physical Exam Vital Signs: BMI result Body Mass Index 25.6 Extrem Other: Patient's left ankle edematous and ecchymotic to inspection, particularly on the medial aspect No lacerations, abrasions, open areas No evidence of infection Patient reports mild tenderness to palpation of the medial malleolus and surrounding area of the left foot and ankle Range of motion limited due to pain Patient is able to actively dorsi and plantar flex, however range of motion isn't full Distal sensation intact Capillary refill brisk Office Procedures AMB Fracture Care Details: Left talus and navicular fractures Fracture Billing Code: Fracture Billing Code Results Reviewed Results Reviewed: X-rays obtained in the office today and independently reviewed by me, Rafal Hernandez PA-C, demonstrate small, minimally displaced fracture of the medial aspect of the talus with some evidence of comminution, as well as a fracture fragments seen on the lateral off of the cuboid or navicular of indeterminate age. Assessment & Plan Assessment & Plan (1) Avulsion fracture of left talus: Code(s): S92.152A - Displaced avulsion fracture (chip fracture) of left talus, initial encounter for closed fracture Category: Medical Qualifiers: Encounter type: subsequent encounter Fracture type: closed Fracture alignment: nondisplaced Fracture healing: with routine healing Qualified Code(s): S92.155D - Nondisplaced avulsion fracture (chip fracture) of left talus, subsequent encounter for fracture with routine healing (2) Navicular fracture, foot: Code(s): S92.253A - Displaced fracture of navicular [scaphoid] of unspecified foot, initial encounter for closed fracture Category: Medical Plan 1. Avulsion fracture of the left talus 2. Avulsion fracture of cuboid or navicular Case was discussed with Dr. Harris, and a collaborative treatment plan was formed: At this time, patient will be allowed to weightbear as tolerated in a boot, but should not be weight-bearing while out of the boot Patient is encouraged to elevate the left lower extremity as much as possible to encourage decrease of swelling, as the left foot is significantly swollen to inspection particularly along the medial aspect Patient has already been placed on light duty at his job at [employer] with no active duty at this time, and I feel these restrictions are appropriate at this time Patient is amenable to this plan Follow-up in 2-3 weeks with repeat x-rays, sooner with any acute concerns Orders: Orders XR ankle LT min 3V Today M25.572 - Pain in left ankle and joints of left foot Coding Level of Care Code New Pt Level 3 (21024) Diagnoses Closed nondisplaced avulsion fracture of left talus with routine healing, subsequent encounter S92.155D Encounter type: subsequent encounter Fracture type: closed Fracture alignment: nondisplaced Fracture healing: with routine healing Navicular fracture, foot S92.253A CPT Codes Fracture Care - Fracture Billing Code: Fracture Billing Code ([id number])
--- OUTSIDE RECORDS SUMMARY | 2024-09-03 13:14 | XMS_ITS | Patient Health Record ---
Author Organization [facility] Address [address] [place] [address] Care Team Providers Care Wage And Salary Specialist Name Role Phone Leodan Gil Primary Care Provider Unavailab Indio Lozada Jr Unavailable [phone] Allergies No Known Allergies Reason For Referral [...] Problem Status W/U Status Risk Notes Problem [id number] Left upper quadrant pain (R10.12) Active confirmed Problem 84667502 Ulcerative colitis without complications, unspecified location (K51.90) Active confirmed Problem 783528664 Abnormal liver function tests (R94.5) Active confirmed Problem Ulcerative colitis (95936256) Ulcerative colitis (K51.90) Active confirmed Plan Of Treatment Future Test Test Name Order Date COLONOSCOPY 06/04/2015 COLONOSCOPY 06/06/2019 COLONOSCOPY 11/26/2021 Insurance Providers Payer Name Payer Address Payer Phone Subscriber Number Group Number Insured Name Patient Relationship to Insured Coverage Start Date Coverage End Date [facility] [address] [place] [phone] [id number] SONIA PLUMMER Self - patient is the [...]
== END 2024-09-03 13:50 | disposition home or self-care (01) ==
LOC: HO.HOS 12:56
PROVIDERS: PCP Physician Assistant
DX: S92.155D Nondisplaced avulsion fracture (chip fracture) of left talus, subsequent encounter for fracture with routine healing (principal); S92.212A Displaced fracture of cuboid bone of left foot, initial encounter for closed fracture; S92.251A Displaced fracture of navicular [scaphoid] of right foot, initial encounter for closed fracture
CPT/HCPCS: 99203

== ENCOUNTER → 2024-09-03 12:57 | Outpatient (BNV) | payer BC, SELFPAY | PROVIDERS: Visit Provider Radiology Diagnostic Radiology | DX: M79.89 Other specified soft tissue disorders (principal) | CPT/HCPCS: 73610 ==

== ENCOUNTER 2024-09-21 11:44 | Outpatient (REF) | payer BC, SELFPAY ==
--- NOTE | ~2024-09-21 | XR_ITS ---
EXAMINATION: XR FOOT 3 OR MORE VIEWS LEFT, XR ANKLE 3 OR MORE VIEWS LEFT HISTORY: M79.672 - Pain in left foot COMPARISON: There are no prior studies available for comparison. FINDINGS: Six views of the foot and ankle are submitted. Osseous mineralization is normal. There is no fracture or dislocation. The joint spaces are preserved. The soft tissues are unremarkable. XR/XR foot LT min 3V IMPRESSION: Unremarkable examination of the left foot and ankle. Electronically signed by: Mike Gloria MD 09/21/2024 03:50 PM EDT
--- NOTE | ~2024-09-21 | XR_ITS ---
EXAMINATION: XR FOOT 3 OR MORE VIEWS LEFT, XR ANKLE 3 OR MORE VIEWS LEFT HISTORY: M79.672 - Pain in left foot COMPARISON: There are no prior studies available for comparison. FINDINGS: Six views of the foot and ankle are submitted. Osseous mineralization is normal. There is no fracture or dislocation. The joint spaces are preserved. The soft tissues are unremarkable. XR/XR ankle LT min 3V IMPRESSION: Unremarkable examination of the left foot and ankle. Electronically signed by: Mike Gloria MD 09/21/2024 03:50 PM EDT
--- OUTSIDE RECORDS SUMMARY | 2024-09-21 12:36 | XMS_ITS | Patient Health Record ---
Author Organization [facility] Address [address] [place] [address] Care Team Providers Care Contract Project Manager Name Role Phone Leodan Gil Primary Care Provider Unavailab Indio Lozada Jr Unavailable [phone] Allergies No Known Allergies Reason For Referral [...] Problem Status W/U Status Risk Notes Problem 846148647 Left upper quadrant pain (R10.12) Active confirmed Problem 07189586 Ulcerative colitis without complications, unspecified location (K51.90) Active confirmed Problem 419559418 Abnormal liver function tests (R94.5) Active confirmed Problem Ulcerative colitis (K51.90) Active confirmed Plan Of Treatment Future Test Test Name Order Date COLONOSCOPY 06/04/2015 COLONOSCOPY 06/06/2019 COLONOSCOPY 11/26/2021 Insurance Providers Payer Name Payer Address Payer Phone Subscriber Number Group Number Insured Name Patient Relationship to Insured Coverage Start Date Coverage End Date [facility] [address] [facility] [phone] [id number] SONIA PLUMMER Self - patient is the [...]
== END 2024-09-21 11:45 | disposition home or self-care (01) ==
LOC: HO.HOSX 11:44
DX: M25.572 Pain in left ankle and joints of left foot (principal); M79.672 Pain in left foot
CPT/HCPCS: 73610; 73630

== ENCOUNTER 2024-09-21 13:26 | Outpatient (AMB) | payer BC, SELFPAY ==
[2024-09-21 13:44] VITALS: BMI 25.6
--- NOTE | 2024-09-21 13:44 | A.OFFVIS_ITS ---
Vital Signs 09/21/24 13:44 Height 5 ft 5 in Weight 154 lb BMI 25.6 Intake Visit Reasons: OV - Left Talus Fx 08/25/24 - w/ XR Intake Note: Gavin is a 54 year old male who presents today for a follow up of his Left Talus Avulsion Fx & Left Navicular Fracture 08/25/24. At his last visit he was placed in a Tall walking boot and instructed that he may weight bear as tolerated in the boot but is to be non weight bearing without boot on. Currently states he continues to wear his boot, this morning he walked with out his boot and states he felt no pain and had no limp. Allergies No Known Allergies Allergy (Verified 09/21/24 13:49) [facility] Medical History Atrial fibrillation Anxiety and depression IBD (inflammatory bowel disease) Surgical History No significant past surgical history Family History Mother No problems noted. Father No problems noted. 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 Current occupational exposures/hazards: No Cognitive needs: No Hearing needs: No Vision needs: Yes (glasses) Physical Exam Vital Signs: BMI result Body Mass Index 25.6 Assessment & Plan Assessment & Plan (1) Avulsion fracture of left talus: Code(s): S92.152A - Displaced avulsion fracture (chip fracture) of left talus, initial encounter for closed fracture Category: Medical Qualifiers: Encounter type: subsequent encounter Fracture type: closed Fracture alignment: nondisplaced Fracture healing: with routine healing Qualified Code(s): S92.155D - Nondisplaced avulsion fracture (chip fracture) of left talus, subsequent encounter for fracture with routine healing (2) Navicular fracture, foot: Code(s): S92.253A - Displaced fracture of navicular [scaphoid] of unspecified foot, initial encounter for closed fracture Category: Medical Plan History of Present Illness The patient is a 28-year-old female presenting with follow-up concerns regarding right-sided De Quervain's Tenosynovitis after receiving an initial corticosteroid injection. The onset of symptoms included severe pain and necessitated a visit to the emergency department, where an x-ray confirmed the absence of fractures. Following the de Quervain injection, the patient reports partial relief with pain levels reducing significantly, though they remain problematic with specific thumb movements, recording a pain intensity of 6.5-7 with thumb flexion and deviation. The patient consistently applies a brace during activity, noticing limited yet consistent benefits. Occupational therapy was discussed as a possible conservative approach before further invasive interventions. The patient denies any accompanying numbness or tingling. Review of Systems - Musculoskeletal: Reports continued pain in the right wrist area, particularly with movements involving thumb flexion and ulnar deviation. Denies numbness or tingling. Systems reviewed and are negative except as per HPI and below Physical Exam - Musculoskeletal- - Mildly positive Lisa test on the right. Very mild tenderness to palpation of the right radial styloid Results Procedure Plan The management plan involves engaging in occupational therapy to further address symptoms of right-sided De Quervain's Tenosynovitis, as initial relief was observed with the previous corticosteroid injection. Therapy will concentrate on enhancing functional use and reducing pain. Should therapy prove inadequate, the consideration of another corticosteroid injection remains an option. Continuation of brace use during activity is recommended for support. Evaluation will continue based on the patient's progress with therapy. Patient was informed and verbally consented to the use of an ambient scribe for clinic note documentation during this visit. Discussion Notes I discussed with the patient the current status of her right-sided De Quervain's Tenosynovitis, noting the partial improvement following the initial steroid injection. The importance of addressing residual symptoms through occupational therapy was emphasized, with the understanding that this conservative treatment could potentially suffice to alleviate pain and improve functionality. We reviewed the possibility of a second injection should therapy yield suboptimal results. I highlighted the importance of using a wrist brace during physically demanding activities as an adjunct support. The patient understood and agreed with the proposed plan, expressing her readiness to contact the occupational therapy department to arrange for an initial session. Patient Instructions - Call the occupational therapy department to schedule an appointment. - Use your brace consistently during active sports or physical activities. - Monitor your symptoms and keep track of any changes or improvements. - Follow up with me if therapy does not provide adequate relief for reassessment and potential second injection consideration. - Seek medical attention sooner if symptoms worsen significantly. Orders: Orders XR ankle LT min 3V Today M25.572 - Pain in left ankle and joints of left foot XR foot LT min 3V Today M79.672 - Pain in left foot Coding Level of Care Code Global (01414) Diagnoses Closed nondisplaced avulsion fracture of left talus with routine healing, subsequent encounter S92.155D Encounter type: subsequent encounter Fracture type: closed Fracture alignment: nondisplaced Fracture healing: with routine healing Navicular fracture, foot S92.253A
== END 2024-09-21 14:19 | disposition home or self-care (01) ==
LOC: HO.HOS 13:27
PROVIDERS: PCP Physician Assistant
DX: S92.155D Nondisplaced avulsion fracture (chip fracture) of left talus, subsequent encounter for fracture with routine healing (principal); S92.253A Displaced fracture of navicular [scaphoid] of unspecified foot, initial encounter for closed fracture
CPT/HCPCS: 99213

== ENCOUNTER → 2024-09-21 13:28 | Outpatient (BNV) | payer BC, SELFPAY | PROVIDERS: Visit Provider Radiology Diagnostic Radiology | DX: M25.572 Pain in left ankle and joints of left foot (principal); M79.672 Pain in left foot | CPT/HCPCS: 73610; 73630 ==

== ENCOUNTER 2024-10-06 09:12 | Outpatient (REF) | payer BC, SELFPAY ==
--- OUTSIDE RECORDS SUMMARY | 2024-10-06 09:15 | XMS_ITS | Patient Health Record ---
Author Organization [facility] Address [address] [place] [address] Care Team Providers Care Etiquette Teacher Name Role Phone Leodan Gil Primary Care Provider Unavailab Indio Lozada Jr Unavailable [phone] Allergies No Known Allergies Reason For Referral [...] Problem Status W/U Status Risk Notes Problem [id number] Left upper quadrant pain (R10.12) Active confirmed Problem 40354622 Ulcerative colitis without complications, unspecified location (K51.90) Active confirmed Problem 687088912 Abnormal liver function tests (R94.5) Active confirmed Problem Ulcerative colitis (68720952) Ulcerative colitis (K51.90) Active confirmed Plan Of Treatment Future Test Test Name Order Date COLONOSCOPY 06/04/2015 COLONOSCOPY 06/06/2019 COLONOSCOPY 11/26/2021 Insurance Providers Payer Name Payer Address Payer Phone Subscriber Number Group Number Insured Name Patient Relationship to Insured Coverage Start Date Coverage End Date [facility] [address] [place] [phone] [id number] SONIA PLUMMER Self - patient is the [...]
[2024-10-06 10:05] LABS: Hematocrit 44.5 % (42.0-52.0); Hemoglobin 15.4 g/dl (14.0-18.0); Mean Corpuscular HGB Conc 34.6 g/dl (31.0-36.0); Mean Corpuscular Hemoglobin 29.7 pg (27.0-33.0); Mean Corpuscular Volume 85.9 fL (80.0-98.0); Mean Platelet Volume 10.4 fL (9.4-12.4); Platelet Count 330 X10*3/uL (160-400); Red Blood Count 5.18 X10*6/uL (4.60-5.80); Red Cell Distribution Width 12.4 % (11.0-16.0); White Blood Count 7.2 X10*3/uL (4.8-10.8)
[2024-10-06 10:38] LABS: Alanine Aminotransferase 30 U/L (0-40); Albumin Level 4.8 g/dL (3.5-5.0); Alkaline Phosphatase 70 U/L (39-117); Anion Gap 12 (12-20); Aspartate Amino Transferase 25 U/L (5-37); Bilirubin Total 1.1 mg/dL (0.0-1.0); Blood Urea Nitrogen 16 mg/dL (9-16); Calcium 9.6 mg/dL (8.4-10.2); Carbon Dioxide 29 mmol/L (22-29); Chloride 104 mmol/L (96-108); Cholesterol 261 mg/dL (<200); Estimated Glomerular Filt Rate > 60; Glucose Fasting 94 mg/dL (60-99); HDL Cholesterol 66 mg/dL (>40); LDL Cholesterol Calculated 171 mg/dL (<100); Potassium 4.2 mmol/L (3.3-5.1); Sodium 141 mmol/L (135-145); Total Protein 7.4 g/dL (6.5-8.0); Triglycerides 124 mg/dL (<150)
[2024-10-06 10:59] LABS: Prostate Specific Antigen Scr 5.38 ng/mL (<0.05-4.0)
== END 2024-10-06 09:13 | disposition home or self-care (01) ==
LOC: HO.LAB 09:12
PROVIDERS: PCP Physician Assistant; Visit Provider Physician Assistant
DX: Z12.5 Encounter for screening for malignant neoplasm of prostate (principal); R97.20 Elevated prostate specific antigen [PSA]; E78.9 Disorder of lipoprotein metabolism, unspecified
CPT/HCPCS: 36415; 80053; 80061; 84153; 85027

== ENCOUNTER 2024-10-08 08:15 | Outpatient (REF) | payer BC, SELFPAY ==
--- NOTE | ~2024-10-08 | XR_ITS ---
EXAMINATION: XR ANKLE, LEFT CLINICAL INFORMATION: M25.572 - Pain in left ankle and joints of left foot COMPARISON: September 21, 2024 TECHNIQUE: AP, lateral, and mortise views of the left ankle. FINDINGS: There is no widening of the syndesmosis. Talar dome is intact. Ankle mortise is congruent. Chronic calcification is present in the distal Achilles tendon. XR/XR ankle LT min 3V IMPRESSION: Unremarkable left ankle, no change Electronically signed by: Kian Oneill MD 10/08/2024 03:34 PM EDT
--- OUTSIDE RECORDS SUMMARY | 2024-10-08 08:32 | XMS_ITS | Patient Health Record ---
Author Organization [facility] Address [address] [place] [address] Care Team Providers Care Assistant Store Manager Name Role Phone Leodan Gil Primary Care Provider Unavailab Indio Lozada Jr Unavailable [phone] Allergies No Known Allergies Reason For Referral [...] Problem Status W/U Status Risk Notes Problem 349480993 Left upper quadrant pain (R10.12) Active confirmed Problem 72388076 Ulcerative colitis without complications, unspecified location (K51.90) Active confirmed Problem 066584783 Abnormal liver function tests (R94.5) Active confirmed Problem Ulcerative colitis (K51.90) Active confirmed Plan Of Treatment Future Test Test Name Order Date COLONOSCOPY 06/04/2015 COLONOSCOPY 06/06/2019 COLONOSCOPY 11/26/2021 Insurance Providers Payer Name Payer Address Payer Phone Subscriber Number Group Number Insured Name Patient Relationship to Insured Coverage Start Date Coverage End Date [facility] [address] [place] [phone] [id number] SONIA PLUMMER Self - patient is the [...]
== END 2024-10-08 08:16 | disposition home or self-care (01) ==
LOC: HO.HOSX 08:15
DX: M25.572 Pain in left ankle and joints of left foot (principal)
CPT/HCPCS: 73610

== ENCOUNTER 2024-10-08 11:24 | Outpatient (AMB) | payer BC, SELFPAY ==
--- NOTE | 2024-10-08 11:30 | A.OFFPC_ITS ---
Vital Signs 10/08/24 11:41 Height 5 ft 5 in Weight 162 lb BMI 27.0 BP 110/80 Blood Pressure Location Lt brachial Position Sitting Pulse 68 Pulse Source Pulse Oximeter Temp 97.3 F Temp Source Temporal Artery Scan Pulse Oximetry (%) 97 Oxygen Delivery Method Room Air Intake Visit Reasons: Annual Exam Saw Filer Required: No Accompanied by: Self / Same As Patient Allergies No Known Allergies Allergy (Verified 10/08/24 14:36) Medication List - Last Reconciled 10/08/24 by Leodan Gil PA-C bupropion HCl XL (Wellbutrin XL) 300 mg PO QAM 90 days mesalamine 4 grams AL BEDTIME Tobacco use date assessed: 06/28/24 Dental Screening Dental Screen Date: 06/28/24 HPI Annual Exam HPI Details Patient is a 54-year-old male here today for routine annual physical.? Patient has a past medical history significant for ulcerative colitis, depression, anxiety. Concern--> have noted elevated PSAs over the last year, there has been 1 point elevation over the last year as well. He does admit to weak urinary stream. He is open to the idea of starting tamsulosin and rechecking PSA in 6 months. Will consider Urology evaluation .. Depression/ anxiety: Patient continues on Wellbutrin 300 mg daily with good effect on his mental health. He would like to continue this medication for now. .. Ulcerative colitis :? Followed by gastroenterology. Gets colonoscopies q 3-5 years.? Has not noted any weight loss and bowel movements have been normal. He is interested a refill on his mesalamine in case of a colitis flare-up. .. Hyperlipidemia: most recent total cholesterol elevated which has been a consistent finding for him. He will continue to work on lifestyle modifications to help reduce his total cholesterol. Trailed statin therapy in the past though had adverse side effects. PLAN: He will try [id number] supplements to reduce his cholesterol also will work on dietary modifications. Vaccine:? Up-to-date with tetanus, UTD COVID vaccine, [facility] Colorectal cancer screening: Most recent colonoscopy done in 2021, need repeat in 3 years followed by GI for his ulcerative colitis as well. Laboratory Tests 10/04/23 10/06/24 08:48 09:22 RBC 5.18 Fasting Glucose 101 H 94 Cholesterol 229 H 261 H LDL Cholesterol, C alc 171 H PSA Screen 4.21 H 5.38 H PFSH Medical History Atrial fibrillation Anxiety and depression IBD (inflammatory bowel disease) Surgical History No significant past surgical history Family History Mother No problems noted. Father No problems noted. 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 Authorization Current occupational exposures/hazards: No Cognitive needs: No Hearing needs: No Vision needs: Yes (glasses) Questionnaire Thrive Questionnaire Date Thrive assessed: 08/28/24 I am a: Patient What is your living situation today?: I have a steady place to live Within the past 12 months, did the food you bought not last and you didn't have the money to get more?: Never true Within the past 12 months, did you worry whether your food would run out before you got money to buy more?: Never true Do you have trouble paying for medicines?: No Do you have trouble getting transportation to medical appointments?: No Do you have trouble paying your heating and electricity bill?: No Do you have trouble taking care of your child, family member or friend?: No Do you have trouble with day-to-day activities such as bathing, preparing meals, shopping, managing finances, etc.?: No Are you currently unemployed and looking for a job?: No Are you interested in more education?: No Please select the resources that you would like help with: None Currently or been in a relationship where the following occur: No concerns reported THRIVE Score: 0 ADDI-7 AMB Questionnaire ADDI-7 Date ADDI - 7 assessed: 06/28/24 Source: Developed by Drs. Mike Garcia, Babita Faulkner, Ian Carney and colleagues, with an educational adrian from [employer]. Review of Systems Const Denies body aches, Denies chills, Denies excessive sweating, Denies fatigue, Denies fever(s) and Denies headache(s) Eyes Denies blurry vision ENT Denies dysphagia, Denies vertigo, Denies dizziness, Denies headache(s), Denies hearing loss and Denies tinnitus Card Denies chest pain, Denies chest pain with activity, Denies syncope, Denies irregular heart rhythm and Denies dyspnea Resp Denies chest congestion, Denies cough, Denies hemoptysis, Denies dyspnea and Denies wheezing GI Denies abdominal pain, Denies melena, Denies hematochezia, Denies coffee ground emesis, Denies dysphagia, Denies diarrhea, Denies nausea and Denies vomiting Denies difficulty urinating, Denies dysuria, Denies urinary frequency, Denies urinary hesitancy and Denies urinary urgency Musc Denies arthralgias, Denies limited range of motion, Denies muscle cramps and Denies muscle weakness Skin/Breast Denies rash and Denies skin ulcer Neuro Denies Abnormal speech present, Denies confusion, Denies vertigo, Denies dizziness, Denies syncope, Denies headache(s), Denies memory loss and Denies seizure-like activity Psych Denies anxiety, Denies confusion, Denies depression, Denies memory loss, Denies panic attacks and Denies paranoia Endo Denies excessive sweating, Denies fatigue, Denies flushing, Denies polydipsia and Denies polyuria Aller/Immun Denies wheezing Physical exam (Primary Care) Vital Signs: Last Vital Signs Temp 97.3 F 10/08/24 11:41 Pulse 68 10/08/24 11:41 BP 110/80 10/08/24 11:41 Pulse Ox 97 10/08/24 11:41 Oxygen Delivery Method Room Air 10/08/24 11:41 BMI result Body Mass Index 27.0 Tobacco/Smoking Status: Tobacco use Status Tobacco use date assessed 06/28/24 10/08/24 11:30 Patient Tobacco Use Status Former Tobacco user 10/08/24 11:30 e-Cigarette/Vaping Use Never Used 10/08/24 11:30 Thrive Assessment: Date of Thrive Assessment Date Thrive assessed 08/28/24 10/08/24 11:30 Currently or been in a relationship where the following occur: No concerns reported Const General: cooperative, comfortable, no acute distress, alert and awake; No confusion Orientation/consciousness: oriented to person, oriented to place, patient oriented x3 and No confusion HENMT Head: Yes normocephalic Ears: external ears normal and TM's normal bilaterally Face and sinus: No sinus tenderness Mouth: Normal oral and palatal mucosa present and tongue normal Teeth and gingiva: dentition normal and gingiva normal Throat: Yes posterior oropharynx normal, Yes tonsils normal and Yes uvula midline Eyes Conjunctivae: conjunctivae normal Sclerae: sclerae normal Pupils: Equal, round and reactive pupils present EOM: EOMs intact bilaterally Direct Ophthalmoscopy: No no photophobia Neck Neck: Yes no lymphadenopathy, No tender and Yes no JVD Thyroid: Thyroid normal Carotids: no bruits Chest Chest palpation & inspection: no tenderness Resp Effort & Inspection: normal respiratory effort, no audible wheezes, not labored and no stridor Auscultation: no crackles, no rales, no rhonchi and no wheezes Cardio Jugular venous distension: no JVD Rate: regular rate, not bradycardic and not tachycardic Rhythm: regular rhythm Bruits: no carotid bruits Peripheral pulses: Peripheral pulses 2+ throughout GI Inspection: Yes normal to inspection, No abdominal wall ecchymosis and No visible herniation Palpation (GI): Soft to palpation, nontender, no guarding, not rigid and No hepatosplenomegaly present Auscultation: normoactive bowel sounds General: Yes no CVA tenderness Back/Spine/Pelvis Back: no CVA tenderness and No back tenderness Cervical Spine: cervical ROM normal Thoracic/Lumbar Spine: thoracic and lumbar spine normal to inspection, straight leg raise negative bilaterally, No thoraco-lumbar ROM limited and No lumbar spinal tenderness Skin Lesions: no lesions Rashes: no rashes Wounds: no wounds Neuro General: oriented to person, oriented to place, patient oriented x3, CN's II-XI intact bilaterally and No confusion Cranial nerves: Yes Equal, round and reactive pupils present and Yes Normal accommodation reflex present Cognition (Neuro): normal cognition Speech: No Abnormal speech present Gait exam (Neuro): Normal gait present Motor exam (neuro): 5/5 motor strength present throughout Extrem Right upper extremity: full ROM; no cyanosis Left upper extremity: full ROM; no cyanosis Right lower extremity: no edema Left lower extremity: no edema Psych Appearance: grossly normal Mental Status: mental status grossly normal Affect: normal affect Attitude: cooperative Thought process: Normal thought process present Coding Level of Care Code Est Pt Prev Care 40-64y(88033) Diagnoses Annual physical exam Z00.00 Mixed hyperlipidemia E78.2 Hyperlipidemia type: mixed hyperlipidemia Elevated PSA R97.20 Assessment & Plan Assessment & Plan (1) Annual physical exam: Code(s): Z00.00 - Encounter for general adult medical examination without abnormal findings Category: Medical Plan: As per HPI (2) HLD (hyperlipidemia): Code(s): E78.5 - Hyperlipidemia, unspecified Category: Medical Qualifiers: Hyperlipidemia type: mixed hyperlipidemia Qualified Code(s): E78.2 - Mixed hyperlipidemia Plan: Patient's fasting lipid panel showing very elevated total cholesterol and LDL. Has tried statin therapy in the past though had intolerable side effects. He will work on his dietary modifications to reduce his cholesterol. Goal LDL to be below 160 and goal total cholesterol to be below 230 (3) Elevated PSA: Code(s): R97.20 - Elevated prostate specific antigen [PSA] Category: Medical Plan: As per HPI patient is experiencing weak urinary stream, has had a slightly elevated PSA over last 2 years. He is willing to start tamsulosin for urinary stream and recheck PSA in 6 months. If PSA remains elevated will consider Urology evaluation. Orders: Orders Prostate Specific Antigen Scr 10/08/24 R97.20 - Elevated prostate specific antigen [PSA], Z12.5 - Encounter for screening for malignant neoplasm of prostate Comprehensive [place]. Panel Fast 10/08/24 E78.2 - Mixed hyperlipidemia Complete Blood Count no Diff 10/08/24 E78.2 - Mixed hyperlipidemia Lipid Panel 10/08/24 E78.2 - Mixed hyperlipidemia Referrals Gastroenterology Referral K52.9 - Noninfective gastroenteritis and colitis, unspecified Medications: New tamsulosin 0.4 mg PO DAILY 90 caps 1RF 90 days R97.20 - Elevated prostate specific antigen [PSA]
[2024-10-08 11:41] VITALS: BP 110/80; PULSE 68; TEMP 36.3; O2SAT 97; BMI 27.0
== END 2024-10-08 12:15 | disposition home or self-care (01) ==
LOC: HO.HMCH 11:25
PROVIDERS: PCP Physician Assistant; Visit Provider Physician Assistant
DX: Z00.00 Encounter for general adult medical examination without abnormal findings (principal); E78.2 Mixed hyperlipidemia; R97.20 Elevated prostate specific antigen [PSA]

== ENCOUNTER 2024-10-08 14:24 | Outpatient (AMB) | payer BC, SELFPAY ==
--- NOTE | 2024-10-08 14:33 | A.OFFVIS_ITS ---
Vital Signs 10/08/24 14:36 Height 5 ft 5 in Weight 162 lb BMI 27.0 Intake Visit Reasons: OV - Left Talus Fx 08/25/24 - w/ XR Intake Note: Gavin is a 54 year old male who presents today for a follow up visit for his avulsion fracture of left talus, DOI: 08/25/24. Patient reports he is doing well. Continues ambulating with boot. Allergies No Known Allergies Allergy (Verified 10/08/24 14:36) HPI HPI OV - Left Talus Fx 08/25/24 - w/ XR: Details: Gavin is a 54 year old male who presents today for a follow up visit for his avulsion fracture of left talus, DOI: 08/25/24. Patient reports he is doing well. Continues ambulating with boot. Reports that he is still experiencing some discomfort, but his pain has improved from previous evaluation. No other acute complaints or concerns at this time. [facility] Medical History Atrial fibrillation Anxiety and depression IBD (inflammatory bowel disease) Surgical History No significant past surgical history Family History Mother No problems noted. Father No problems noted. 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 Current occupational exposures/hazards: No Cognitive needs: No Hearing needs: No Vision needs: Yes (glasses) Review of Systems Const All systems reviewed & are unremarkable except as noted in HPI and below Physical Exam Vital Signs: BMI result Body Mass Index 27.0 Extrem Other: Patient's left ankle no longer edematous or ecchymotic No lacerations, abrasions, open areas No evidence of infection Patient reports very minimal tenderness to palpation of the medial malleolus and surrounding area of the left foot and ankle Range of motion limited due to pain Patient is able to actively dorsi and plantar flex, however range of motion isn't full Distal sensation intact Capillary refill brisk Results Reviewed Results Reviewed: X-rays obtained in the office today and independently reviewed by me, Rafal Hernandez PA-C, demonstrate small, minimally displaced fracture of the medial aspect of the talus with some evidence of comminution, as well as a fracture fragments seen on the lateral off of the cuboid or navicular of indeterminate age. Assessment & Plan Assessment & Plan (1) Avulsion fracture of left talus: Code(s): S92.152A - Displaced avulsion fracture (chip fracture) of left talus, initial encounter for closed fracture Category: Medical Qualifiers: Encounter type: subsequent encounter Fracture type: closed Fracture alignment: nondisplaced Fracture healing: with routine healing Qualified Code(s): S92.155D - Nondisplaced avulsion fracture (chip fracture) of left talus, subsequent encounter for fracture with routine healing (2) Navicular fracture, foot: Code(s): S92.253A - Displaced fracture of navicular [scaphoid] of unspecified foot, initial encounter for closed fracture Category: Medical Plan 1. 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 and is still experiencing some discomfort, I feel it is best for him to remain in the boot for a further 2-3 weeks Patient is amenable to this plan Light duty at work until this time Anticipate gradual return back to normal work duties at next visit Follow-up in 2-3 weeks Orders: Orders XR ankle LT min 3V Today M25.572 - Pain in left ankle and joints of left foot Coding Level of Care Code Global (42828) Diagnoses Closed nondisplaced avulsion fracture of left talus with routine healing, subsequent encounter S92.155D Encounter type: subsequent encounter Fracture type: closed Fracture alignment: nondisplaced Fracture healing: with routine healing Navicular fracture, foot S92.253A
[2024-10-08 14:36] VITALS: BMI 27.0
== END 2024-10-08 14:51 | disposition home or self-care (01) ==
LOC: HO.HOS 14:25
DX: S92.155D Nondisplaced avulsion fracture (chip fracture) of left talus, subsequent encounter for fracture with routine healing (principal); S92.253A Displaced fracture of navicular [scaphoid] of unspecified foot, initial encounter for closed fracture
CPT/HCPCS: 99213

== ENCOUNTER → 2024-10-08 14:26 | Outpatient (BNV) | payer BC, SELFPAY | PROVIDERS: Visit Provider Radiology Diagnostic Radiology | DX: M25.572 Pain in left ankle and joints of left foot (principal) | CPT/HCPCS: 73610 ==

== ENCOUNTER 2024-10-23 09:27 | Outpatient (REF) | payer BC, SELFPAY ==
--- NOTE | ~2024-10-23 | XR_ITS ---
CLINICAL HISTORY: M25.572 - Pain in left ankle and joints of left foot Three views of the left ankle. COMPARISON: None provided. FINDINGS: Medial right ankle soft tissue swelling. Thin ossification present along the medial aspect of the medial malleolus of the distal tibia. Distal fibula appears intact. Ankle mortise appears symmetric on non stressed views. Talar dome appears intact. Visualized tarsal bones appear intact. Small calcaneal enthesophyte present. IMPRESSION: 1. Suspect thin avulsion fracture along the medial malleolus of the distal tibia. There is overlying soft tissue swelling. Recommend correlation with point tenderness. This document has been electronically signed by: Garcia Rouse MD on 10/24/2024 13:51:35
--- OUTSIDE RECORDS SUMMARY | 2024-10-23 10:05 | XMS_ITS | Patient Health Record ---
Author Organization [facility] Address [address] [place] [address] Care Team Providers Care Core Microarchitect Name Role Phone Leodan Gil Primary Care Provider Unavailab le Indio Taylor Jr Unavailable Allergies No Known Allergies Reason For Referral Referring Provider First Name Leodan Referring Provider Last Name Jeffery Referred Organization [facility] Referred Provider Indio Taylor Jr Referred Address [address],[place], [place],[address],[place] Referred Provider Specialty Gastroentero logy Referral Priority Routine Medications Medication SIG (Take, Route, Fr equency, [...] Problem Status W/U Status Risk Notes Problem [id number] Left upper quadrant pain (R10.12) Active confirmed Problem [id number] Ulcerative colitis without complications, unspecified location (K51.90) Active confirmed Problem [id number] Abnormal liver function tests (R94.5) Active confirmed Problem Ulcerative colitis (K51.90) Active confirmed Plan Of Treatment Future Test Test Name Order Date COLONOSCOPY 06/04/2015 COLONOSCOPY 06/06/2019 COLONOSCOPY 11/26/2021 Next Appt Details Provider Name:Indio bridges Jr, 01/31/2025 03:35:00 PM, [address], [address], [place], [address], Insurance Providers Payer Name Payer Address Payer Phone Subscriber Number Group Number Insured Name Patient Relationship to Insured Coverage Start Date Coverage End Date [facility] [employer] [address] [place] [address] [id number] SONIA PLUMMER Self - patient is the [...]
== END 2024-10-23 09:28 | disposition home or self-care (01) ==
LOC: HO.HOSX 09:27
DX: M25.572 Pain in left ankle and joints of left foot (principal)
CPT/HCPCS: 73610

== ENCOUNTER 2024-10-23 09:35 | Outpatient (AMB) | payer BC, SELFPAY ==
[2024-10-23 09:41] VITALS: BMI 27.0
--- NOTE | 2024-10-23 09:41 | MHC.OFFVIS ---
Vital Signs 10/23/24 09:41 Height 5 ft 5 in Weight 162 lb BMI 27.0 Intake Visit Reasons: OV: Left Talus Fx 08/25/24 - w/ XR Intake Note: Gavin is a 54 year old male who presents today for a follow up visit for his avulsion fracture of left talus, DOI: 08/25/24. Patient reports no numbness or tingling at this time. Patient states that he feels that the left talus pain is almost gone, little to no swelling to report. Allergies No Known Allergies Allergy (Verified 10/23/24 09:44) HPI HPI OV: Left Talus Fx 08/25/24 - w/ XR: Details: Gavin is a 54 year old male who presents today for a follow up visit for his avulsion fracture of left talus, DOI: 08/25/24. Patient reports no numbness or tingling at this time. Patient states that he feels that the left talus pain is almost gone, little to no swelling to report. Patient reports that he feels he is ready to gradually return back to full duties at work. [facility] Medical History Atrial fibrillation Anxiety and depression IBD (inflammatory bowel disease) Surgical History No significant past surgical history Family History Mother No problems noted. Father No problems noted. 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 Current occupational exposures/hazards: No Cognitive needs: No Hearing needs: No Vision needs: Yes (glasses) Review of Systems Const All systems reviewed & are unremarkable except as noted in HPI and below Physical Exam Vital Signs: BMI result Body Mass Index 27.0 Extrem Other: Patient's left ankle no longer edematous or ecchymotic No lacerations, abrasions, open areas No evidence of infection Patient reports no tenderness to palpation of the medial malleolus and surrounding area of the left foot and ankle Range of motion of the left foot and ankle full and intact Patient is able to actively dorsi and plantar flex Distal sensation intact Capillary refill brisk Results Reviewed Results Reviewed: X-rays obtained in the office today and independently reviewed by me, Rafal Hernandez PA-C, demonstrate well healing avulsion fracture of left talus as well as avulsion fracture of navicular. Assessment & Plan Assessment & Plan (1) Avulsion fracture of left talus: Code(s): S92.152A - Displaced avulsion fracture (chip fracture) of left talus, initial encounter for closed fracture Category: Medical Qualifiers: Encounter type: subsequent encounter Fracture type: closed Fracture alignment: nondisplaced Fracture healing: with routine healing Qualified Code(s): S92.155D - Nondisplaced avulsion fracture (chip fracture) of left talus, subsequent encounter for fracture with routine healing (2) Navicular fracture, foot: Code(s): S92.253A - Displaced fracture of navicular [scaphoid] of unspecified foot, initial encounter for closed fracture Category: Medical Plan 1. Avulsion fracture of left talus Date of injury 08/25/2024 Patient appears to be recovering well from his injury Patient is educated about the typical recovery course At this time, patient is removed from the boot and is told to wear good supportive footwear when weight-bearing Patient is amenable to this plan Patient may gradually return back to normal work duties Advised to wait approximately 4 weeks before he begins running again Follow-up as needed Orders: Orders XR ankle LT min 3V Today M25.572 - Pain in left ankle and joints of left foot Coding Level of Care Code Global (31145) Diagnoses Closed nondisplaced avulsion fracture of left talus with routine healing, subsequent encounter S92.155D Encounter type: subsequent encounter Fracture type: closed Fracture alignment: nondisplaced Fracture healing: with routine healing Navicular fracture, foot S92.253A
== END 2024-10-23 09:54 | disposition home or self-care (01) ==
LOC: HO.HOS 09:35
PROVIDERS: PCP Physician Assistant
DX: S92.155D Nondisplaced avulsion fracture (chip fracture) of left talus, subsequent encounter for fracture with routine healing (principal); S92.253A Displaced fracture of navicular [scaphoid] of unspecified foot, initial encounter for closed fracture
CPT/HCPCS: 99213

== ENCOUNTER → 2024-10-23 09:37 | Outpatient (BNV) | payer BC, SELFPAY | PROVIDERS: Visit Provider Radiology Diagnostic Radiology | DX: R22.42 Localized swelling, mass and lump, left lower limb (principal) | CPT/HCPCS: 73610 ==

== ENCOUNTER 2025-03-28 22:48 | Emergency (ER) | payer BC, SELFPAY ==
--- OUTSIDE RECORDS SUMMARY | 2025-01-31 10:35 | XMS_ITS ---
Author Organization [facility] Address [address] [place] [address] Care Team Providers Care Successfactors Consultant Name Role Phone Jeffery, Leodan Primary Care Provider Unavailab Indio Lozada Jr Unavailable [phone] Allergies No Known Allergies REASON FOR VISIT Patient presents today for noninfective gastroenteritis and colitis Medications Medication SIG (Take, Route, Frequency, Duration) Notes Start Date End Date Status Wellbutrin XL 300 MG Tablet Extended Release 24 Hour 1 tablet in the morning Orally Once a day Active Mesalamine 4 GM Enema 1 enema Rectal Onc e a day; Duration: 30 days 06/06/2019 Active Immunizations Vaccine Route Administration Date Status Comme nts Influenza Unknown 01/31/2025 Refused Social History Social History Additional Details Category Social Info Options Details Miscellaneous: Marital status: 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 Vital Signs Temperature 97.5 degrees Fahrenheit 02/01/20 25 Blood pressure systolic 001 mm Hg 02/01/20 25 Blood pressure diastolic 01 mm Hg 025 Height 66 in 01/31/2025 Weight 162.4 lbs 01/31/2025 BMI 26.21 kg/m2 01/31/2025 Encounters Encounter Location Date Provider Diagnosis [facility] [address] [place] [address] 01/31/2025 Indio Taylor Jr Ulcerative colitis K51.90 Assessments Encounter Date Diagnosis (ICD Code) Assessment Notes Treatment Notes Treatment Clinical Notes Section Notes 01/31/2025 Ulcerative colitis (ICD-10 - K51.90) Plan Of Treatment Future Test Test Name Order Date COLONOSCOPY 01/31/2025 Next Appt Details Provider Name:Indio bridges , 05/21/2025 07:30:00 AM, [address] [place] [address] , [place], [place], [phone], Progress Notes * CECE MAROB: 1 (55 yo M)Acc No.[id number]:01/31/2025 Progress Notes Patient: SONIA SARAVIA Provider: Koby Taylor MD :1970 A ge:54 Y S ex:Male Date:01/31/2025 Address:[address] [place], [place] [id number] Pcp:Leodan Gil Subjective: * Chief Complaints: * P atient presents today for noninfective gastroenteritis and colitis * Medical History: Anxiety/depression Elevated cholesterol ulcerative colitis, colonoscopy 11/26/15 showing quiescent colitis throughout and mild active chronic colitis involving the rectosigmoid. Previous treatment to mesalamine as tablets and enemas, prednisone. Diagnosis date 2000. Atrial fibrillation, 2 separate episodes in his 20s Medical History Verified * Surgical History: No Surgical History documented. Surgical History verified. * Hospitalization/Major Diagno stic Procedure: No Hospitalization Documented. Hospitalization Verified. * Family History: F ather: alive. M other: alive. F amily History Verified.. No family hx of colon or liver cancer. * Social History: T obacco Use: T obacco Use/Smoking A re you a: nonsmoker. D rugs/Alcohol: A lcohol Screen P oints: 0, Interpretation: Negative. M iscellaneous: M arital status: . 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 Social History Verified. Ruby loving does not use tobacco or alcohol. 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 * Medications: T akingWellbutrin XL 300 MG Tablet Extended Release 24 Hour 1 tablet in the morning Orally Once a day Mesalamine 4 GM Enema 1 enema Rectal Once a day Medication List reviewed and reconciled with the patientTaking Wellbutrin XL 300 MG Tablet Extended Release 24 Hour 1 tablet in the morning Orally Once a day Taking Mesalamine 4 GM Enema 1 enema Rectal Once a day Medication List reviewed and reconciled with the patient * Allergies: N .K.D.AEvelinyesAllergies Verified. Objective: * Vitals: W t:162.4lbs, Ht: 66 in, BMI:26.21Index, BP:001/01mm Hg, Temp:97.5F, Wt-k.66 kg. Assessment: * Assessment: 1. U lcerative colitis - K51.90 (Primary) Plan: * Treatment: * Immunizations: Influenza (Not administered - Refused: Patient decision) * Preventive Medicine: Counseling: C are goal follow-up plan: A oliverio Normal BMI Follow-up D ietary management education, guidance, and counseling, B FL management provided Y es. Billing Information: * Procedure Codes: * The named appointment provid er may or may not be the originator of this progress note, and it is not deemed complete until electronically signed by the appointment provider. Sign off status: Pending * Provider: Koby Taylor MD Date: Generated for Tatum patten/Fadia/Yanyitting on: 05/30/2024 01:20 AM EST
[2025-03-28 22:58] VITALS: BP 122/78; PULSE 66; RESP 18; TEMP 36.6; O2SAT 98; BMI 26.7
--- NOTE | 2025-03-29 01:10 | ED.EXTPRO ---
HPI - Extremity Problem General Chief complaint: Extremity Injury, Upper Stated complaint: Injury Time Seen by Provider: 03/29/25 01:00 Source: patient and RN notes reviewed Mode of arrival: ambulatory Limitations: no limitations History of Present Illness ED Provider: Maria E KEEN Narrative: Patient is a 55 year old male with a pmhx of HLD and IBD presenting today after he noticed his left elbow started swelling today. Pt is able to flex and extend his elbow with some restriction due to pain. Reports no fever, chills, redness, warmth, or known trauma to area. 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 Related Data Home Medications ?Medication ?Instructions ?Recorded ?Confirmed mesalamine 4 gram/60 mL enema 4 g PA BEDTIME 06/28/24 10/08/24 Previous Rx's ?Medication ?Instructions ?Recorded bupropion HCl 300 mg 24 hr tablet, 300 mg PO QAM 90 days #90 tabs 10/04/24 extended release (Wellbutrin XL) tamsulosin 0.4 mg capsule 0.4 mg PO DAILY 90 days #90 caps 10/08/24 Allergies Allergy/AdvReac Type Severity Reaction Status Date / Time No Known Allergies Allergy Verified 03/28/25 23:00 Review of Systems Constitutional: Constitutional: Reports as per HPI, Denies chills, Denies fatigue, Denies fever(s) and Denies headache(s) ENT: Denies headache(s) Cardiovascular: Cardiovascular: Denies chest pain and Denies dyspnea Respiratory: Respiratory: Denies cough and Denies dyspnea Gastrointestinal: Gastrointestinal: Denies abdominal pain, Denies constipation and Denies vomiting Genitourinary: Genitourinary: Denies difficulty urinating and Denies dysuria Musculoskeletal: Musculoskeletal: Reports arthralgias, Reports joint swelling and Reports limited range of motion Integumentary/Breasts: Skin/Breast: Reports swelling, Denies rash and Denies wounds Neurologic: Denies headache(s) and Denies focal weakness Endocrine: Endocrine: Denies fatigue PMFSH Past Medical History Medical History Atrial fibrillation Anxiety and depression IBD (inflammatory bowel disease) Surgical History No significant past surgical history Family History Family History Mother No problems noted. Father No problems noted. 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 Current occupational exposures/hazards: No Cognitive needs: No Hearing needs: No Vision needs: Yes (glasses) Physical Exam Vital Signs: Vital Signs: Last Vital Signs Temp 97.8 F 03/28/25 22:58 Pulse 66 03/28/25 22:58 Resp 18 03/28/25 22:58 BP 122/78 03/28/25 22:58 Pulse Ox 98 03/28/25 22:58 O2 Del Method Room Air 03/28/25 22:58 BMI result Body Mass Index 26.7 Const: General: healthy appearing, comfortable, no acute distress, alert and awake Nutritional Appearance: well nourished Orientation/consciousness: patient oriented x3 HEENT: Head: Yes normocephalic and Yes atraumatic Eyes: Eyelids: Yes eyelids normal Conjunctivae: conjunctivae normal Sclerae: sclerae normal Corneas: corneas normal Neck: Neck: Yes full ROM Resp: Effort & Inspection: normal respiratory effort, able to speak in complete sentences, no audible wheezes and not labored Skin: General skin exam: elasticity normal Neuro: General: patient oriented x3 Cognition (Neuro): normal cognition Extrem: Other: Appears to be mild edema of the left elbow consistent with olecranon bursitis General: Yes full ROM Left upper extremity: full ROM and elbow/forearm Details: tenderness Location: of the olecranon and swelling Location: of the olecranon; no ecchymosis and no penetrating wound Medical Decision Making Medical Decision Making MDM Narrative: 55-year-old male presents for evaluation of left elbow pain and swelling. His symptoms started 2 days after he was crawling in his elbows. He has no fevers or chills, no wounds to the area. He has good range of motion intact. There was no significant trauma to warrant x-ray imaging. The patient's history exam is most consistent with an olecranon bursitis. Imaging and labs deferred at this time. Differential Diagnosis Differential Diagnoses: The differential diagnosis associated with the presentation includes Olecranon bursitis Epicondylitis Cellulitis Gout Dislocation Tests considered The following testing was considered but not selected: Consider left elbow x-ray but deferred due to lack of trauma Discharge Plan Discharge Clinical Impression: Olecranon bursitis Patient Disposition: Home, Self-Care Instructions: Elbow Bursitis (ED) Additional Instructions: The swelling in her left elbow was consistent with something called an olecranon bursitis. This is a generally caused by friction of the left elbow or rubbing the elbow or leaning on the elbow frequently. Try to avoid putting pressure on the left elbow. You may use ibuprofen for pain pain You may wish to apply some pressure with an Yosi bandage Follow up with your primary doctor, return for new or worsening symptoms Prescriptions: No Action bupropion HCl [Wellbutrin XL] 300 mg tablet extended release 24 hr 300 mg PO QAM 90 Days Qty: 90 3RF tamsulosin 0.4 mg capsule 0.4 mg PO DAILY 90 Days Qty: 90 1RF mesalamine 4 gram/60 mL enema 4 g PA BEDTIME Print Language: Tajik
--- OUTSIDE RECORDS SUMMARY | 2025-03-29 01:21 | XMS_ITS | Patient Health Record ---
Author Organization [facility] Address [address] [place] [address] Care Team Providers Care Steel Tester Name Role Phone Leodan Gil Primary Care Provider Unavailab le Indio Taylor Jr Unavailable Allergies No Known Allergies Reason For Referral Referring Provider First Name Leodan Referring Provider Last Name Jeffery Referred Organization [facility] Referred Provider Indio Taylor Jr Referred Address [address],[place], [place],[address], Referred Provider Specialty Gastroentero logy Referral Priority Routine Medications Medication SIG (Take, Route, Frequency, Duration) [...] Unknown 04/25/2019 Administered Influenza Unknown 12/24/2020 Administered Influenza Unknown 01/31/2025 Refused Social History Social History Additional Details Category Social Info Options Details Miscellaneous: Marital status: 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 Problems Problem Type SNOMED Code ICD Code Onset Dates Problem Status W/U Status Risk Notes Problem Left upper quadrant pain (777740577) Left upper quadrant pain (R10.12) Active confirmed Problem Ulcerative colitis (85927138) Ulcerative colitis without complications, unspecified location (K51.90) Active confirmed Problem Liver function tests abnormal (281696740) Abnormal liver function tests (R94.5) Active confirmed Problem Ulcerative colitis (46029273) Ulcerative colitis (K51.90) Active confirmed Vital Signs Temperature 97.5 degrees Fahrenheit 01/31/2025 Blood pressure diastolic 01 mm Hg 01/31/2025 Height 66 in 01/31/2025 Blood pressure systolic 001 mm Hg 01/31/2025 Weight 162.4 lbs 01/31/2025 BMI 26.21 kg/m2 01/31/2025 Encounters Encounter Location Date Provider Diagnosis [facility] [address] [place] [phone] 01/31/2025 Indio Taylor Jr Ulcerative colitis K51.90 Assessments Encounter Date Diagnosis (ICD Code) Assessment Notes Treatment Notes Treatment Clinical Notes Section Notes 01/31/2025 Ulcerative colitis (ICD-10 - K51.90) Plan Of Treatment Future Test Test Name Order Date COLONOSCOPY 06/04/2015 COLONOSCOPY 06/06/2019 COLONOSCOPY 11/26/2021 COLONOSCOPY 01/31/2025 Next Appt Details Provider Name:Indio bridges Jr, 05/21/2025 07:30:00 AM, [address] [place] [address] , [place], [phone], Insurance Providers Payer Name Payer Address Payer Phone Subscriber Number Group Number Insured Name Patient Relationship to Insured Coverage Start Date Coverage End Date [facility] [employer] [address] [place] [address] [phone] [id number] SONIA PLUMMER Self - patient is [...]
[2025-03-29 02:10] VITALS: BP 122/78; PULSE 66; RESP 18; TEMP 36.6; O2SAT 98
== END 2025-03-29 02:13 | disposition home or self-care (01) ==
PROVIDERS: Emergency Provider Emergency Medicine; PCP Physician Assistant
DX: M70.22 Olecranon bursitis, left elbow (principal); Z79.899 Other long term (current) drug therapy; Z87.891 Personal history of nicotine dependence
CPT/HCPCS: 99284